=== PATIENT | female | born 1955 | race Caucasian/White ===

== ENCOUNTER → 2019-08-14 | Outpatient (CLI) | payer MEDICAID ==
--- NOTE | 2019-08-14 11:20 | RAD ---
SHOULDER 2+V RIGHT DATE: 08/14/2019 12:00 AM INDICATION: Reason: RIGHT SHOULDER PAIN / Spl. Instructions: / History: COMPARISON: None. FINDINGS: Bones: There is no evidence of acute fracture or dislocation. Joints: Mild degenerative changes of the acromioclavicular joint. Glenohumeral joint is congruent. The acromiohumeral distance is not narrowed. Miscellaneous: No abnormal soft tissue calcifications in the shoulder. IMPRESSION: No acute osseous abnormality. Mild degenerative changes. Electronically signed by: Tate Allen MD (08/14/2019 11:17 AM) [id number]
== END ==
LOC: DXRAD 09:30
PROVIDERS: ATTEND Physician Assistant
DX: M19.011 Primary osteoarthritis, right shoulder (principal)
CPT/HCPCS: 73030

== ENCOUNTER 2019-11-02 12:06 | Emergency (ER) | payer OTHER, MEDICAID ==
[~2019-11-02] VITALS: Ht 167.6 cm; Wt 113.6 kg
[2019-11-02 12:47] LABS: BILIRUBIN,URINE NEG (NEG); CLARITY,URINE CLEAR; COLOR,URINE STRAW; GLUCOSE,URINE NEG (NEG); NITRITE,URINE NEG (NEG); RBC,URINE RARE /HPF (0-2); UROBILINOGEN,URINE 0.2 mg/dL (0.2 mg/dL)
[2019-11-02 12:52] LABS: BACTERIA,URINE FEW /HPF (0-FEW)
[2019-11-02 12:53] LABS: SQUAMOUS EPITHELIAL CELL,UR FEW /LPF
[2019-11-02 13:05] LABS: BASO % 0 % (0-3); EOS # 0.2 x10^3/uL (0.0-0.7); EOS % 2 % (0-3); HEMATOCRIT 40.3 % (36.0-47.0); HEMOGLOBIN 13.3 g/dL (12.0-15.5); LYMPH # 1.5 x10^3/uL (1.0-4.8); LYMPH % 22 % (24-48); MEAN CORPUSCULAR HEMOGLOBIN 29 pg (25-35); MEAN CORPUSCULAR HGB CONC 33 g/dL (31-37); MEAN CORPUSCULAR VOLUME 88 fL (79-100); MONO # 0.4 x10^3/uL (0.0-1.1); MONO % 6 % (0-9); NEUT # 4.6 x10^3uL (1.8-7.7); NEUT % 69 % (31-73); PLATELET COUNT 192 x10^3/uL (140-400); RED BLOOD COUNT 4.57 x10^6/uL (3.50-5.40); RED CELL DISTRIBUTION WIDTH 14.8 % (11.5-14.5); WHITE BLOOD COUNT 6.7 x10^3/uL (4.0-11.0)
[2019-11-02 13:12] LABS: CALCIUM 9.1 mg/dL (8.5-10.1); CREATININE 0.8 mg/dL (0.6-1.0); POTASSIUM 3.6 mmol/L (3.5-5.1)
[2019-11-02 13:20] LABS: ALBUMIN 3.5 g/dL (3.4-5.0); TOTAL BILIRUBIN 0.2 mg/dL (0.2-1.0)
--- NOTE | 2019-11-02 13:59 | RAD ---
PQRS Compliance Statement: One or more of the following individualized dose reduction techniques were utilized for this examination: 1. Automated exposure control 2. Adjustment of the mA and/or kV according to patient size 3. Use of iterative reconstruction technique CT abdomen/pelvis without contrast 11/02/2019 12:32 PM INDICATION: Lower abdominal pain COMPARISON: None available TECHNIQUE: Multiple axial CT images of the abdomen and pelvis were obtained without intravenous contrast. Coronal and sagittal reformats are provided. FINDINGS: There is subsegmental atelectasis in the left lower lobe. Heart size within normal limits. Evaluation of solid abdominal viscera is limited by lack of intravenous contrast. Subcentimeter hypodensities are identified scattered throughout the liver measuring up to 5 mm) series 2, image 47) which are too small to characterize. These findings are statistically favored to represent benign etiology in the absence of underlying malignancy. Right adrenal nodule measures 2.8 x 2.0 cm with attenuation of 1.5 Hounsfield units suggestive of a lipid rich adrenal adenoma. There is a left adrenal nodule measuring 1.6 x 1.5 cm suggestive of a lipid rich adrenal adenoma. Spleen, pancreas and gallbladder are normal in appearance. Abdominal aorta is normal in course and caliber. There are no pathologically enlarged lymph nodes in abdomen and pelvis. There is no free fluid or free intraperitoneal air. There is moderate colonic diverticulosis. Appendix is normal in appearance. Postoperative changes from gastric bypass surgery are noted. Shunt catheter is identified terminating in the right upper quadrant abdomen. Coarse calcification identified within the right upper quadrant of the abdomen. Bowel anastomosis noted left upper quadrant. Tiny pocket of fluid is identified deep to the ventral abdominal wall the lower pelvis measuring 1.4 x 1.3 cm, nonspecific. The kidneys are relatively symmetric in appearance. There is no suspicious renal mass within the limitations of a noncontrast examination. There is no hydronephrosis. There are no calculi within the kidneys, ureters or urinary bladder. Urinary bladder is within normal limits in degree of distention. No suspicious pelvic mass. No suspicious osseous abnormality. IMPRESSION: 1. Moderate colonic diverticulosis. No adjacent inflammatory changes to suggest diverticulitis. 2. Bilateral lipid rich adrenal adenomas measuring up to 2.8 x 2.0 cm. 3. Shunt catheter terminates in the right upper quadrant abdomen. No significant free fluid or free intraperitoneal air. 4. Postoperative changes from gastric bypass surgery without evidence for bowel obstruction or inflammation. 5. No evidence for obstructive uropathy. 6. Subcentimeter hypodensities within the liver are statistically favored represent benign etiology such as cysts or hemangiomas in the absence of underlying malignancy. 7. Nonspecific focal fluid collection deep to the ventral abdominal wall in the upper pelvis measuring 1.4 x 1.3 cm. No adjacent inflammation. Consideration may be given for sequela of prior omental infarct. Electronically signed by: Ericka Quarles MD (11/02/2019 1:56 PM) [facility]
--- NOTE | 2019-11-02 15:47 | RAD ---
ABDOMEN LTD: 11/02/2019 12:32 PM Indication: 64 years old Female. Right upper quadrant abdominal pain. Comparison: None. TECHNIQUE: Sonographic evaluation of the right upper quadrant was performed utilizing grayscale and color Doppler imaging. FINDINGS: Liver: There is diffuse increased echogenicity of the hepatic parenchyma compatible with diffuse hepatocellular disease, most commonly due to steatosis. This decreases the sensitivity of ultrasound for the detection of focal hepatic lesions.. There is hepatopedal flow within the portal venous system. Right hepatic lobe measures 17.2 cm. Biliary system: CBD measures 2 mm. There is no intrahepatic or extrahepatic biliary dilatation. Gallbladder: Distended measuring 11.5 cm in length. No gallstones or gallbladder wall thickening . Sonographic Nation sign: Negative Pancreas: Visualized head and uncinate process are unremarkable. Body and tail are not visualized. Right kidney: 10.8 x 5.5 x 4.8 cm No hydronephrosis. Normal echotexture without focal mass or renal calculus. The right suprarenal hypoechoic structures identified which likely corresponds with CT finding of adrenal lipid rich adenoma. Free fluid:None. IMPRESSION: 1. No cholelithiasis or sonographic evidence for acute cholecystitis. 2. Right adrenal mass with CT findings suggestive of a lipid rich adrenal adenoma. 3. Increased echogenicity of the hepatic parenchyma suggestive of hepatocellular disease, most commonly hepatic steatosis. Electronically signed by: Ericka Quarles MD (11/02/2019 3:44 PM) [facility]
--- NOTE | 2019-11-02 16:03 | PHYS DOC ---
Past History Past Medical History: Diabetes, GERD, Hypertension, Other Additional Past Medical Histor: chronic pain knees Past Surgical History: No Surgical History, , Gastric Bypass Alcohol Use: None General Adult EDM: Chief Complaint: ABDOMINAL PAIN HPI: HPI: 64-year-old female has medical history of [employer] shunt, diabetes, hypertension, hypothyroidism, hyperlipidemia and COPD, presents the ED with complaints of right upper quadrant abdominal pain that radiates to her suprapubic region that started last . Patient states at that time she saw her primary care physician Dr. Asher who started her on a laxative, MiraLAX and Dulcolax. Patient states this made her stools runny and her last bowel movement was that day (3 d ago). History 4 C-sections with lysis of adhesions. Patient states supra pubic abdominal pain hurts when she walks. States she got a paper from primary care physician to have an ultrasound of her gallbladder and kidneys but was told she was likely constipated. Review of Systems: Review of Systems: Constitutional: Denies fever or chills Eyes: Denies change in visual acuity HENT: Denies nasal congestion or sore throat Respiratory: Denies cough or shortness of breath, hemoptysis Cardiovascular: Denies chest pain or edema GI: Denies abdominal pain, nausea, vomiting, bloody stools or diarrhea, melena, hematochezia : Denies dysuria, hematuria Musculoskeletal: Denies back pain or joint pain, leg swelling Integument: Denies rash Neurologic: Denies headache, focal weakness or sensory changes Endocrine: Denies polyuria or polydipsia Lymphatic: Denies swollen glands Psychiatric: Denies depression or anxiety Heart Score: Risk Factors: Risk Factors: DM, Current or recent (<one month) smoker, HTN, HLP, family history of CAD, obesity. Risk Scores: Score 0 - 3: 2.5% MACE over next 6 weeks - Discharge Home Score 4 - 6: 20.3% MACE over next 6 weeks - Admit for Clinical Observation Score 7 - 10: 72.7% MACE over next 6 weeks - Early Invasive Strategies Physical Exam: PE: Constitutional: Well developed, well nourished, no acute distress, non-toxic appearance. [] HENT: Normocephalic, atraumatic, bilateral external ears normal, oropharynx moist, no oral exudates, nose normal. [] Eyes: PERRLA, EOMI, conjunctiva normal, no discharge. [] Neck: Normal range of motion, no tenderness, supple, no stridor. [] Cardiovascular:Heart rate regular rhythm, no murmur [] Lungs & Thorax: Bilateral breath sounds clear to auscultation [] Abdomen: Bowel sounds normal, soft, no tenderness, no masses, no pulsatile masses. [] Skin: Warm, dry, no erythema, no rash. [] Back: No tenderness, no CVA tenderness. [] Extremities: No tenderness, no cyanosis, no clubbing, ROM intact, no edema. [] Neurologic: Alert and oriented X 3, normal motor function, normal sensory function, no focal deficits noted. [] Psychologic: Affect normal, judgement normal, mood normal. [] Current Patient Data: Labs: Laboratory Tests Test 11/02/19 12:25 11/02/19 12:48 Urine Collection Type Unknown Urine Color Straw Urine Clarity Clear Urine pH 5.0 Urine Specific [place] 1.010 Urine Protein Neg (NEG-TRACE) Urine Glucose (UA) Neg mg/dL (NEG) Urine Ketones (Stick) Neg mg/dL (NEG) Urine Blood Neg (NEG) Urine Nitrite Neg (NEG) Urine Bilirubin Neg (NEG) Urine Urobilinogen Dipstick 0.2 mg/dL (0.2 mg/dL) Urine Leukocyte Esterase Neg (NEG) Urine RBC Rare /HPF (0-2) Urine WBC 1-4 /HPF (0-4) Urine Squamous Epithelial Cells Few /LPF Urine Bacteria Few /HPF (0-FEW) Urine Mucus Slight /LPF White Blood Count 6.7 x10^3/uL (4.0-11.0) Red Blood Count 4.57 x10^6/uL (3.50-5.40) Hemoglobin 13.3 g/dL (12.0-15.5) Hematocrit 40.3 % (36.0-47.0) Mean Corpuscular Volume 88 fL (79-100) Mean Corpuscular Hemoglobin 29 pg (25-35) Mean Corpuscular Hemoglobin Concent 33 g/dL (31-37) Red Cell Distribution Width 14.8 % (11.5-14.5) H Platelet Count 192 x10^3/uL (140-400) Neutrophils (%) (Auto) 69 % (31-73) Lymphocytes (%) (Auto) 22 % (24-48) L Monocytes (%) (Auto) 6 % (0-9) Eosinophils (%) (Auto) 2 % (0-3) Basophils (%) (Auto) 0 % (0-3) Neutrophils # (Auto) 4.6 x10^3uL (1.8-7.7) Lymphocytes # (Auto) 1.5 x10^3/uL (1.0-4.8) Monocytes # (Auto) 0.4 x10^3/uL (0.0-1.1) Eosinophils # (Auto) 0.2 x10^3/uL (0.0-0.7) Basophils # (Auto) 0.0 x10^3/uL (0.0-0.2) Sodium Level 136 mmol/L (136-145) Potassium Level 3.6 mmol/L (3.5-5.1) Chloride Level 100 mmol/L (98-107) Carbon Dioxide Level 29 mmol/L (21-32) Anion Gap 7 (6-14) Blood Urea Nitrogen 25 mg/dL (7-20) H Creatinine 0.8 mg/dL (0.6-1.0) Estimated GFR (Cockcroft-Gault) 72.0 BUN/Creatinine Ratio 31 (6-20) H Glucose Level 119 mg/dL (70-99) H Calcium Level 9.1 mg/dL (8.5-10.1) Total Bilirubin 0.2 mg/dL (0.2-1.0) Aspartate Amino Transferase (AST) 12 U/L (15-37) L Alanine Aminotransferase (ALT) 24 U/L (14-59) Alkaline Phosphatase 62 U/L (46-116) Total Protein 7.0 g/dL (6.4-8.2) Albumin 3.5 g/dL (3.4-5.0) Albumin/Globulin Ratio 1.0 (1.0-1.7) Vital Signs: Vital Signs Date Time Temp Pulse Resp B/P (MAP) Pulse Ox O2 Delivery O2 Flow Rate FiO2 11/02/19 15:12 89 16 132/67 (88) 98 Room Air 11/02/19 12:19 98.5 EKG: EKG: [] Radiology/Procedures: Radiology/Procedures: [] IMAGING REPORT Signed PATIENT: BLOSSOM ROSARIO ACCOUNT: [id number] : 1955 LOCATION: ER AGE: 64 SEX: F EXAM STATUS: REG ER ORD. PHYSICIAN: DISHA PAUL DO REASON: lower and pain PROCEDURE: CT ABDOMEN PELVIS WO CONTRAST PQRS Compliance Statement: One or more of the following individualized dose reduction techniques were utilized for this examination: 1. Automated exposure control 2. Adjustment of the mA and/or kV according to patient size 3. Use of iterative reconstruction technique CT abdomen/pelvis without contrast 11/02/2019 12:32 PM INDICATION: Lower abdominal pain COMPARISON: None available TECHNIQUE: Multiple axial CT images of the abdomen and pelvis were obtained without intravenous contrast. Coronal and sagittal reformats are provided. FINDINGS: There is subsegmental atelectasis in the left lower lobe. Heart size within normal limits. Evaluation of solid abdominal viscera is limited by lack of intravenous contrast. Subcentimeter hypodensities are identified scattered throughout the liver measuring up to 5 mm) series 2, image 47) which are too small to characterize. These findings are statistically favored to represent benign etiology in the absence of underlying malignancy. Right adrenal nodule measures 2.8 x 2.0 cm with attenuation of 1.5 Hounsfield units suggestive of a lipid rich adrenal adenoma. There is a left adrenal nodule measuring 1.6 x 1.5 cm suggestive of a lipid rich adrenal adenoma. Spleen, pancreas and gallbladder are normal in appearance. Abdominal aorta is normal in course and caliber. There are no pathologically enlarged lymph nodes in abdomen and pelvis. There is no free fluid or free intraperitoneal air. There is moderate colonic diverticulosis. Appendix is normal in appearance. Postoperative changes from gastric bypass surgery are noted. Shunt catheter is identified terminating in the right upper quadrant abdomen. Coarse calcification identified within the right upper quadrant of the abdomen. Bowel anastomosis noted left upper quadrant. Tiny pocket of fluid is identified deep to the ventral abdominal wall the lower pelvis measuring 1.4 x 1.3 cm, nonspecific. The kidneys are relatively symmetric in appearance. There is no suspicious renal mass within the limitations of a noncontrast examination. There is no hydronephrosis. There are no calculi within the kidneys, ureters or urinary bladder. Urinary bladder is within normal limits in degree of distention. No suspicious pelvic mass. No suspicious osseous abnormality. IMPRESSION: 1. Moderate colonic diverticulosis. No adjacent inflammatory changes to suggest diverticulitis. 2. Bilateral lipid rich adrenal adenomas measuring up to 2.8 x 2.0 cm. 3. Shunt catheter terminates in the right upper quadrant abdomen. No significant free fluid or free intraperitoneal air. 4. Postoperative changes from gastric bypass surgery without evidence for bowel obstruction or inflammation. 5. No evidence for obstructive uropathy. 6. Subcentimeter hypodensities within the liver are statistically favored represent benign etiology such as cysts or hemangiomas in the absence of underlying malignancy. 7. Nonspecific focal fluid collection deep to the ventral abdominal wall in the upper pelvis measuring 1.4 x 1.3 cm. No adjacent inflammation. Consideration may be given for sequela of prior omental infarct. Electronically signed by: Enrique Morris MD (11/02/2019 1:56 PM) [facility] DICTATED AND SIGNED BY: ENRIQUE MORRIS MD DATE: 11/02/19 135 CC: NICOLAS FU MD; DISHA PAUL DO ~ IMAGING REPORT Signed PATIENT: BLOSSOM ROSARIO ACCOUNT: [id number] : 1955 LOCATION: ER AGE: 64 SEX: F EXAM STATUS: REG ER ORD. PHYSICIAN: DISHA PAUL DO REASON: ruq pain PROCEDURE: ABDOMEN LTD ABDOMEN LTD: 11/02/2019 12:32 PM Indication: 64 years old Female. Right upper quadrant abdominal pain. Comparison: None. TECHNIQUE: Sonographic evaluation of the right upper quadrant was performed utilizing grayscale and color Doppler imaging. FINDINGS: Liver: There is diffuse increased echogenicity of the hepatic parenchyma compatible with diffuse hepatocellular disease, most commonly due to steatosis. This decreases the sensitivity of ultrasound for the detection of focal hepatic lesions.. There is hepatopedal flow within the portal venous system. Right hepatic lobe measures 17.2 cm. Biliary system: CBD measures 2 mm. There is no intrahepatic or extrahepatic biliary dilatation. Gallbladder: Distended measuring 11.5 cm in length. No gallstones or gallbladder wall thickening . Sonographic Nation sign: Negative Pancreas: Visualized head and uncinate process are unremarkable. Body and tail are not visualized. Right kidney: 10.8 x 5.5 x 4.8 cm No hydronephrosis. Normal echotexture without focal mass or renal calculus. The right suprarenal hypoechoic structures identified which likely corresponds with CT finding of adrenal lipid rich adenoma. Free fluid:None. IMPRESSION: 1. No cholelithiasis or sonographic evidence for acute cholecystitis. 2. Right adrenal mass with CT findings suggestive of a lipid rich adrenal adenoma. 3. Increased echogenicity of the hepatic parenchyma suggestive of hepatocellular disease, most commonly hepatic steatosis. Electronically signed by: Enrique Morris MD (11/02/2019 3:44 PM) [facility] DICTATED AND SIGNED BY: ENRIQUE MORRIS MD DATE: 11/02/19 1544 CC: NICOLAS FU MD; [facility] DO ~ Course & Med Decision Making: Course & Med Decision Making Pertinent Labs and Imaging studies reviewed. (See chart for details) Concern for right upper quadrant abdominal pain and irregular bowel movements, in a well-appearing, nontoxic patient, hemodynamically stable.. CT imaging concerning for fatty liver, possible omental infarct and diverticulosis with no evidence of diverticulitis. Right upper quadrant ultrasound shows no evidence of cholecystitis or cholelithiasis. U/a contaminated with no LE/nitrites. Labs wnl, no leukocytosis. Patient states she had a colonoscopy within the past year. Differential is broad-could be musculoskeletal versus neuropathic versus pelvic floor dysfunction (obese-large abdominal girth) vs IBS. Strict ED return precautions given for severe abdominal or back pain, fever or dehydration. Encouraged urgent outpatient follow-up with PMD and GI. Life-threatening processes were considered but are low suspicion at this time, given history and physical exam. Pt was educated on all prescription medications and adverse effects. All patient's questions were answered and pt was stable at time of discharge. Differential includes aortic dissection, aortic aneurysm, acute coronary syndrome, surgical abdomen (appendicitis, cholecystitis, ischemic bowel, strangulated hernia, etc), bowel obstruction or volvulus, bladder outlet obstruction, gastrointestinal bleeding, inflammatory bowel disease, peptic ulcer disease, sepsis, diverticular disease, ureterolithiasis, nephrolithiasis, ovarian or testicular torsion, ectopic , vaginal hemorrhage of infection I spoken with the patient and her caregivers. I explained the patient's condition, diagnoses and treatment plan based on the information available to me at this time. I have answered the patient and her caregiver's questions and addressed any concerns. The patient and her caregivers have a good understanding of patient's diagnosis, condition and treatment plan as can be expected at this point. Vital signs have been stable. Patient's condition is stable and appropriate for discharge from the emergency department. Patient will pursue further outpatient evaluation with primary care physician or other designated or consulting physician as outlined in the discharge instructions. The patient and/or caregivers are agreeable to this plan of care and follow-up instructions have been explained in detail. The patient and/or caregivers have received these instructions in written form and have expressed an understanding of the discharge instructions. The patient and/or caregivers are aware that any significant change of condition or worsening of symptoms should prompt immediate return to this or the closest emergency department or call to 911. Jeovany Disclaimer: Dragon Disclaimer: This electronic medical record was generated, in whole or in part, using a voice recognition dictation system. Departure Departure: Impression: Primary Impression: Abdominal pain Additional Impressions: Fatty liver Diverticulosis Disposition: 01 HOME/RESIDENCE PRIOR TO ADM Condition: STABLE Referrals: NICOLAS FU MD (PCP) Patient Instructions: Abdominal Pain, Diverticulosis Additional Instructions: toni Burt MD Primary Specialties [facility]astro[facility] Address: [address] [place] [address], [address] [place] [address] Justification of Admission: Justification of Admission: Justification of Admission Dx: N/A DISHA PAUL DO Nov 02, 2019 16:03
[2019-11-02 16:55] VITALS: BP 142/78
== END 2019-11-02 17:18 | disposition home or self-care (01) ==
LOC: ER 12:06
DX: K57.30 Diverticulosis of large intestine without perforation or abscess without bleeding (principal); K76.0 Fatty (change of) liver, not elsewhere classified; E11.9 Type 2 diabetes mellitus without complications; K21.9 Gastro-esophageal reflux disease without esophagitis; I10 Essential (primary) hypertension; G89.29 Other chronic pain; E03.9 Hypothyroidism, unspecified; E78.5 Hyperlipidemia, unspecified; J44.9 Chronic obstructive pulmonary disease, unspecified; Z98.890 Other specified postprocedural states; Z98.84 Bariatric surgery status
CPT/HCPCS: 36415; 74176; 76705; 80053; 81001; 85025; 99285-25

== ENCOUNTER 2019-12-20 14:36 | Emergency (ER) | payer OTHER, MEDICAID ==
[~2019-12-20] VITALS: Ht 167.6 cm; Wt 113.6 kg
[2019-12-20 14:52] VITALS: BP 110/61
--- NOTE | 2019-12-20 14:52 | PHYS DOC ---
Past History Past Medical History: Diabetes, GERD, Hypertension, Other Additional Past Medical Histor: chronic pain knees Past Surgical History: No Surgical History, , Gastric Bypass Alcohol Use: None Adult General Chief Complaint Chief Complaint: SEIZURE HPI HPI Patient is a 64-year-old female who presents for fatigue. Patient has extensive list of comorbidities but is well managed by primary care physician and ancillary specialists in outpatient setting. She denies any recent fever, COVID-19 contact or recent febrile illness and admits to taking all scheduled medications without any compliance issues. She reports having a seizure "all day yesterday"despite taking all of her medications as scheduled without any obvious precipitating factors. As a result, patient reports feeling fatigued today and seeking evaluation. She has no major complaints besides fatigue. Review of Systems Review of Systems Fourteen body systems of review of systems have been reviewed. See HPI for pertinent positives and negative responses, other castrejon all other systems are negative, non-pertinent or non-contributory Allergies Allergies Allergies Coded Allergies Type Severity Reaction Last Updated Verified No Known Drug Allergies 11/02/19 No Physical Exam Physical Exam Constitutional: Well developed, well nourished, no acute distress, non-toxic ap pearance. HENT: Normocephalic, atraumatic, bilateral external ears normal, oropharynx moist, no oral exudates, nose normal. Eyes: PERRLA, EOMI, conjunctiva normal, no discharge. Neck: Normal range of motion, no tenderness, supple, no stridor. Cardiovascular: Heart rate regular, sinus rhythm, no murmurs rubs or gallops Lungs & Thorax: Bilateral breath sounds clear to auscultation Abdomen: Bowel sounds normal, soft, protuberant abdomen, no tenderness, no masses, no pulsatile masses. Nonsurgical abdomen, no peritoneal signs Skin: Warm, dry, no erythema, no rash. Back: No tenderness, no CVA tenderness. Extremities: No tenderness, no cyanosis, no clubbing, ROM intact, trace edema bilaterally Neurologic: Alert and oriented X 3, grossly normal motor & sensory function, no focal deficits noted. Psychologic: Affect normal, judgement normal, anxious mood Current Patient Data Vital Signs Vital Signs Date Time Temp Pulse Resp B/P (MAP) Pulse Ox O2 Delivery O2 Flow Rate FiO2 12/20/19 14:52 84 18 110/61 (77) 98 Lab Results Laboratory Tests Test 12/20/19 14:53 White Blood Count 9.8 x10^3/uL (4.0-11.0) Red Blood Count 4.73 x10^6/uL (3.50-5.40) Hemoglobin 13.5 g/dL (12.0-15.5) Hematocrit 41.0 % (36.0-47.0) Mean Corpuscular Volume 87 fL (79-100) Mean Corpuscular Hemoglobin 29 pg (25-35) Mean Corpuscular Hemoglobin Concent 33 g/dL (31-37) Red Cell Distribution Width 14.3 % (11.5-14.5) Platelet Count 228 x10^3/uL (140-400) Neutrophils (%) (Auto) 81 % (31-73) Lymphocytes (%) (Auto) 12 % (24-48) Monocytes (%) (Auto) 6 % (0-9) Eosinophils (%) (Auto) 0 % (0-3) Basophils (%) (Auto) 0 % (0-3) Neutrophils # (Auto) 7.9 x10^3uL (1.8-7.7) Lymphocytes # (Auto) 1.2 x10^3/uL (1.0-4.8) Monocytes # (Auto) 0.6 x10^3/uL (0.0-1.1) Eosinophils # (Auto) 0.0 x10^3/uL (0.0-0.7) Basophils # (Auto) 0.0 x10^3/uL (0.0-0.2) Urine Collection Type Unknown Urine Color Straw Urine Clarity Clear Urine pH 5.0 Urine Specific [place] 1.015 Urine Protein Neg (NEG-TRACE) Urine Glucose (UA) Neg mg/dL (NEG) Urine Ketones (Stick) Neg mg/dL (NEG) Urine Blood Neg (NEG) Urine Nitrite Neg (NEG) Urine Bilirubin Neg (NEG) Urine Urobilinogen Dipstick 0.2 mg/dL (0.2 mg/dL) Urine Leukocyte Esterase Trace (NEG) Urine RBC 0 /HPF (0-2) Urine WBC Occ /HPF (0-4) Urine Squamous Epithelial Cells Few /LPF Urine Bacteria 0 /HPF (0-FEW) Sodium Level 132 mmol/L (136-145) Potassium Level 3.0 mmol/L (3.5-5.1) Chloride Level 90 mmol/L (98-107) Carbon Dioxide Level 36 mmol/L (21-32) Anion Gap 6 (6-14) Blood Urea Nitrogen 62 mg/dL (7-20) Creatinine 1.3 mg/dL (0.6-1.0) Estimated GFR (Cockcroft-Gault) 41.1 Glucose Level 118 mg/dL (70-99) Calcium Level 9.5 mg/dL (8.5-10.1) Troponin I Quantitative < 0.017 ng/mL (0-0.055) EKG EKG EKG ordered and interpreted by myself 1451 hrs. as sinus rhythm at 84 bpm, unremarkable intervals, no axis deviation, no ischemic findings, no STEMI Radiology/Procedures Radiology/Procedures PROCEDURE: CHEST AP ONLY Single view chest dated 12/20/2019. No comparison available. CLINICAL INDICATION: Seizure. Findings compare single upright portable exam performed. Heart and mediastinal contours within normal limits. STATEMENT REQUEST CLERK shunt tubing in place. Lungs are clear. No consolidation or pleural effusion. No pneumothorax. IMPRESSION: No acute radiographic abnormality. Electronically signed by: Thai Mack MD (12/20/2019 3:59 PM) [id number] Heart Score HEART Score for Chest Pain: HEART Score for Chest Pain Response (Comments) Value History Slighlty/Non-Suspicious 0 ECG Normal 0 Age >45 - < 65 1 Risk Factors >3 Risk Factors or Hx CAD 2 Troponin < Normal Limit 0 Total 3 Risk Factors: Risk Factors: DM, Current or recent (<one month) smoker, HTN, HLP, family history of CAD, obesity. Risk Scores: Risk Factors: DM, Current or recent (<one month) smoker, HTN, HLP, family history of CAD, obesity. Course & Med Decision Making Course & Med Decision Making Pertinent Labs and Imaging studies reviewed. (See chart for details) I discussed most likely diagnosis of dehydration and mild electrolyte abnormalities with patient. I have no other emergent and/or concerning diagnoses or explanations for patient's fatigue. I cannot describe patient's reported seizure that lasted "all day" with her having full recollection IV fluid rehydration and electrolyte replacement administered Patient has good access to care in outpatient setting, I feel she is safe for discharge home with close PCP follow-up within the week. She has echocardiograms and other testing modalities scheduled in the next couple weeks which she will benefit from. I did disclose this might be an acute presentation more concerning diagnoses and as such, if any concerning signs or symptoms represent prior to outpatient follow-up for her to come back for repeat examination Strict return precautions were discussed with good understanding, all questions and concerns addressed prior to ER departure in stable condition Jeovany Disclaimer Jeovany Disclaimer This electronic medical record was generated, in whole or in part, using a voice recognition dictation system. Departure Departure: Impression: Primary Impression: Dehydration Additional Impression: Electrolyte disturbance Disposition: 01 DC HOME SELF CARE/HOMELESS Condition: STABLE Referrals: NICOLAS FU MD (PCP) Patient Instructions: Hypokalemia, Sodium and Fluid Restriction Additional Instructions: As discussed prior to ER departure, please call your primary care physician first thing Sunday morning to schedule outpatient follow-up in upcoming 2 to 10 days Please continue to keep all outpatient procedures that are scheduled and appointments I would recommend repeat laboratory analysis in outpatient setting to recheck yo ur kidney function and electrolyte levels. You might need to discuss need for increased potassium requirements given increased diuretic use If any concerning signs or symptoms represent prior to outpatient follow-up please do not hesitate to return for repeat evaluation It was a pleasure to take care of you and I wish you a speedy recovery Problem Qualifiers NICOLE CORREA DO Dec 20, 2019 14:52
[2019-12-20 15:38] LABS: BASO % 0 % (0-3); EOS % 0 % (0-3); HEMOGLOBIN 13.5 g/dL (12.0-15.5); LYMPH # 1.2 x10^3/uL (1.0-4.8); LYMPH % 12 % (24-48); MEAN CORPUSCULAR HEMOGLOBIN 29 pg (25-35); MEAN CORPUSCULAR HGB CONC 33 g/dL (31-37); MEAN CORPUSCULAR VOLUME 87 fL (79-100); MONO # 0.6 x10^3/uL (0.0-1.1); MONO % 6 % (0-9); NEUT # 7.9 x10^3uL (1.8-7.7); NEUT % 81 % (31-73); PLATELET COUNT 228 x10^3/uL (140-400); RED BLOOD COUNT 4.73 x10^6/uL (3.50-5.40); RED CELL DISTRIBUTION WIDTH 14.3 % (11.5-14.5); WHITE BLOOD COUNT 9.8 x10^3/uL (4.0-11.0)
[2019-12-20 15:43] LABS: CALCIUM 9.5 mg/dL (8.5-10.1); CREATININE 1.3 mg/dL (0.6-1.0); GFR 41.1
[2019-12-20 15:46] LABS: COLOR,URINE STRAW
[2019-12-20 15:47] LABS: BACTERIA,URINE 0 /HPF (0-FEW); BILIRUBIN,URINE NEG (NEG); CLARITY,URINE CLEAR; GLUCOSE,URINE NEG (NEG); NITRITE,URINE NEG (NEG); RBC,URINE 0 /HPF (0-2); UROBILINOGEN,URINE 0.2 mg/dL (0.2 mg/dL); WBC,URINE OCC /HPF (0-4)
[2019-12-20 15:48] LABS: SQUAMOUS EPITHELIAL CELL,UR FEW /LPF
--- NOTE | 2019-12-20 16:02 | RAD ---
Single view chest dated 12/20/2019. No comparison available. CLINICAL INDICATION: Seizure. Findings compare single upright portable exam performed. Heart and mediastinal contours within normal limits. APPLIANCES SAMPLE MAKER shunt tubing in place. Lungs are clear. No consolidation or pleural effusion. No pneumothorax. IMPRESSION: No acute radiographic abnormality. Electronically signed by: Thai Mack MD (12/20/2019 3:59 PM) [id number]
[2019-12-20] MEDS ORDERED: POTASSIUM CHLORIDE 20 MEQ TABLET.ER. PO ONE (16:30)
[2019-12-20] MEDS ORDERED: POTASSIUM CL 20MEQ IN 0.9%NACL 1,000 ML IV ONE (16:30)
[2019-12-20] MEDS ORDERED: IV NORMAL SALINE 500ML 500 ML IV ONE (16:45)
--- NOTE | 2019-12-20 18:20 | EKG ---
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
== END 2019-12-20 17:51 | disposition home or self-care (01) ==
LOC: ER 14:36
DX: E86.0 Dehydration (principal); E87.8 Other disorders of electrolyte and fluid balance, not elsewhere classified; E11.9 Type 2 diabetes mellitus without complications; K21.9 Gastro-esophageal reflux disease without esophagitis; I10 Essential (primary) hypertension; G89.29 Other chronic pain; Z98.84 Bariatric surgery status; Z98.890 Other specified postprocedural states
CPT/HCPCS: 36415; 71045; 80048; 81001; 84484; 85025; 87086; 93005; 96360; 99285; J7040

== ENCOUNTER → 2019-12-23 | Outpatient (CLI) | payer OTHER, MEDICAID ==
[2019-12-20 14:52] VITALS: BP 110/61
== END ==
LOC: LAB 11:41
PROVIDERS: ATTEND Nurse Practitioner
DX: Z01.810 Encounter for preprocedural cardiovascular examination (principal); Z20.828 Contact with and (suspected) exposure to other viral communicable diseases
CPT/HCPCS: U0003

== ENCOUNTER 2020-01-01 17:47 | Emergency (ER) | payer OTHER, MEDICAID ==
[~2020-01-01] VITALS: Ht 167.6 cm; Wt 113.6 kg
--- NOTE | 2020-01-01 18:16 | PHYS DOC ---
Past History Past Medical History: CHF, Diabetes, GERD, Hypertension, Seizure, Other Additional Past Medical Histor: chronic pain knees (LORENA WHITLOCK APRN) Past Surgical History: , Gastric Bypass, Hysterectomy, Other Additional Past Surgical Histo: CUTTING PRESSMAN SHUNT IN HEAD; RIGHT ROTATOR CUFF REPAIR (LORENA WHITLOCK APRN) Alcohol Use: None (LORENA WHITLOCK APRN) Adult General Chief Complaint Chief Complaint: WRIST PAIN [facility] HPI Patient is a 64-year-old female patient who presents with right wrist pain. Patient reports that she was walking outside today, when she tripped on some bricks and fell, landing on her right knee and right hand. States she has had some increasing pain throughout the day, with some increased swelling. Reports her hand is normally swollen from arthritis, however it is to be little bit worse today. States no decrease in range of motion however she is having some pain with range of motion. Denies any discomfort to her knee. Denies any dizziness, chest discomfort prior to falling or after falling. States she has taken regularly prescribed medications for this. (LORENA WHITLOCK APRN) Review of Systems Review of Systems Constitutional: Denies fever or chills [] Eyes: Denies change in visual acuity, redness, or eye pain [] Respiratory: Denies cough or shortness of breath [] Cardiovascular: No additional information not addressed in HPI [] GI: Denies abdominal pain, nausea, vomiting, bloody stools or diarrhea [] : Denies dysuria or hematuria [] Musculoskeletal: Denies back pain complains of pain to right wrist, denies pain to right knee [] Integument: Denies rash or skin lesions [] Neurologic: Denies headache, focal weakness or sensory changes [] Endocrine: Denies polyuria or polydipsia [] All other systems were reviewed and found to be within normal limits, except as documented in this note. (LORENA WHITLOCK APRN) Allergies Allergies Allergies Coded Allergies Type Severity Reaction Last Updated Verified No Known Drug Allergies 11/02/19 No (LORENA WHITLOCK APRN) Physical Exam Physical Exam Constitutional: Well developed, well nourished, no acute distress, non-toxic appearance. [] Neck: Normal range of motion, no tenderness, supple, no stridor. [] Cardiovascular:Heart rate regular rhythm, no murmur [] Lungs & Thorax: Bilateral breath sounds clear to auscultation [] Abdomen: Bowel sounds normal, soft, no tenderness, no masses, no pulsatile masses. [] Skin: Warm, dry, no erythema, no rash. [] Back: No tenderness, no CVA tenderness. [] Extremities: no cyanosis, no clubbing, ROM intact, no edema. Increased bony prominence over fifth and fourth metacarpals right hand without tenderness. Tenderness located distal radius and ulna, patient nonspecific as to which. Decreased range of motion with flexion extension of right wrist. Patient able to make a fist and grasp. Patient able to fan fingers on hand [] Neurologic: Alert and oriented X 3, normal motor function, normal sensory function, no focal deficits noted. [] Psychologic: Affect normal, judgement normal, mood normal. [] (LORENA WHITLOCK APRN) Current Patient Data Vital Signs Vital Signs Date Time Temp Pulse Resp B/P (MAP) Pulse Ox O2 Delivery O2 Flow Rate FiO2 01/01/20 17:47 97.5 80 18 86/41 (56) 94 Room Air (LORENA WHITLOCK APRN) EKG EKG [] (LORENA WHITLOCK APRN) Radiology/Procedures Radiology/Procedures EXAM: WRIST 3V RIGHT, HAND RIGHT 3V 01/01/2020 6:10 PM CLINICAL INDICATION:Fall on outstretched hand, swelling and pain COMPARISON:None TECHNIQUE:3 views of the right wrist. 3 views of the right hand FINDINGS: Right wrist: No acute fracture. Alignment is normal. Joint spaces are maintained. No focal soft tissue abnormality. Right hand: No acute fracture. Alignment is normal. There are small osteophytes at the second through fourth metacarpal heads. Joint spaces are maintained. No focal soft tissue abnormality. IMPRESSION:No acute osseous abnormality of the right wrist or hand. Electronically signed by: Lisa Puckett MD (01/01/2020 7:48 PM) [id number] (LORENA WHITLOCK APRN) Heart Score Risk Factors: Risk Factors: DM, Current or recent (<one month) smoker, HTN, HLP, family history of CAD, obesity. Risk Scores: Risk Factors: DM, Current or recent (<one month) smoker, HTN, HLP, family history of CAD, obesity. (LORENA WHITLOCK APRN) Course & Med Decision Making Course & Med Decision Making Pertinent Labs and Imaging studies reviewed. (See chart for details) [] Reviewed imaging with patient without noted acute fractures, Patient to continue to take her home pain medications as needed for discomfort. Follow-up as needed for further concerns and use ice (LORENA WHITLOCK APRN) Dragon Disclaimer Dragon Disclaimer This electronic medical record was generated, in whole or in part, using a voice recognition dictation system. (LORENA WHITLOCK APRN) Departure Departure: Impression: Primary Impression: Right wrist sprain Disposition: 01 DC HOME SELF CARE/HOMELESS Condition: GOOD Referrals: NICOLAS FU MD (PCP) Patient Instructions: Wrist Sprain with [facility] Additional Instructions: As we discussed, continue to put ice on your wrists to help with the pain and swelling. Follow-up with your primary care provider as needed. Take your home pain medications. Attending Signature Attending Signature I have reviewed the PA/ALUMINUM SIDING MECHANIC's note and plan of care. I was available for consultation as needed during the patient's visit in the emergency department. I agree with the clinical impression, plan, and disposition. (SKYLER GALE DO) Problem Qualifiers Primary Impression: Right wrist sprain Encounter type: initial encounter Qualified Codes: S63.501A - Unspecified sprain of right wrist, initial encounter LORENA WHITLOCK APRN Jan 01, 2020 18:16 SKYLER GALE DO Jan 01, 2020 22:04
--- NOTE | 2020-01-01 19:50 | RAD ---
EXAM: WRIST 3V RIGHT, HAND RIGHT 3V 01/01/2020 6:10 PM CLINICAL INDICATION:Fall on outstretched hand, swelling and pain COMPARISON:None TECHNIQUE:3 views of the right wrist. 3 views of the right hand FINDINGS: Right wrist: No acute fracture. Alignment is normal. Joint spaces are maintained. No focal soft tissue abnormality. Right hand: No acute fracture. Alignment is normal. There are small osteophytes at the second through fourth metacarpal heads. Joint spaces are maintained. No focal soft tissue abnormality. IMPRESSION:No acute osseous abnormality of the right wrist or hand. Electronically signed by: Lisa Puckett MD (01/01/2020 7:48 PM) [id number]
[2020-01-01 20:15] VITALS: BP 129/66
== END 2020-01-01 20:15 | disposition home or self-care (01) ==
LOC: ER 17:47
DX: S63.591A Other specified sprain of right wrist, initial encounter (principal); M79.641 Pain in right hand; R60.0 Localized edema; I11.0 Hypertensive heart disease with heart failure; I50.9 Heart failure, unspecified; E11.9 Type 2 diabetes mellitus without complications; K21.9 Gastro-esophageal reflux disease without esophagitis; G89.29 Other chronic pain; Z90.710 Acquired absence of both cervix and uterus; Z98.890 Other specified postprocedural states; W10.8XXA Fall (on) (from) other stairs and steps, initial encounter; Y93.89 Activity, other specified; Y92.89 Other specified places as the place of occurrence of the external cause; Y99.8 Other external cause status
CPT/HCPCS: 73110; 73130; 99284

== ENCOUNTER → 2020-02-11 | Outpatient (CLI) | payer OTHER, MEDICAID ==
--- NOTE | 2020-02-13 19:34 | RAD ---
Examination: MG 2D BILAT SCREENING History: Reason: SCREENING MAMMOGRAM / Spl. Instructions: / History: Comparison/Correlation: 12/19/2017, 12/25/2016, 10/04/2015 Technique: Routine bilateral digital mammogram views were obtained. Findings: Breast Tissue Density B : There are scattered areas of fibroglandular density. Left upper-outer breast punctate calcification cluster 8.3 cm from nipple is present. These punctate calcifications are more evident compared to prior exams. No mass is identified. No distortion. IMPRESSION: Spot magnification of the left upper outer breast calcification cluster recommended. BI-RADS Category 0: Incomplete: Need additional imaging evaluation. The images were reviewed with computer aided detection. Patient information is entered into the reminder system with a target due date for the next screening mammogram. Mammography is the most sensitive method for finding small breast cancers, but it does not detect the m all and is not a substitute for careful clinical examination. A negative mammogram does not negate a clinically suspicious finding and should not result in delay in biopsying a clinically suspicious a bnormality. "Our facility is accredited by the [employer] Mammography Program." Electronically signed by: Johny Gusman MD (02/13/2020 7:32 PM) [id number]
== END ==
LOC: MAMMO 10:03
PROVIDERS: ATTEND Family Medicine
DX: Z12.31 Encounter for screening mammogram for malignant neoplasm of breast (principal)
CPT/HCPCS: 77067

== ENCOUNTER → 2020-03-01 | Outpatient (CLI) | payer OTHER, MEDICAID ==
[~2020-03-01] MED LIST: ALBU2.5V8 INH; ASPI-630 PO; ATOR40TA59 PO; CEPH500C PO; CHOL500021 PO; FLUT1BLS9 IH; HYDR-2769 PO; METO5TAB4 PO; OXYC13.5 PO; PANT40TA6 PO; POTA10TA5 PO; PRAM0.255 PO; SULF1TAB24 PO; TOPI50TA38 PO; TORS20TA2 PO
--- NOTE | 2020-03-01 16:19 | RAD ---
EXAM: Left breast diagnostic mammogram. HISTORY: 64-year-old female presents for reduction of left breast microcalcifications. TECHNIQUE: Full-field true lateral and spot magnification views of the left breast are obtained. COMPARISON: 02/11/2020 and 12/19/2017 BREAST PARENCHYMAL DENSITY: Level A - Mostly fat. FINDINGS: There are adjacent clustered microcalcifications within the 3:00 position at mid to posteri or depth which demonstrate heterogeneous morphology. These are increased compared to prior studies. T here is slight asymmetry in this location, without the convincing mass or architectural distortion. T here are additional scattered ossifications elsewhere within the left breast. IMPRESSION: Adjacent clustered microcalcifications with heterogeneous morphology within the 3:00 posi tion of the left breast at mid to posterior depth. Stereotactic guided biopsy is recommended for defi nitive diagnosis. RECOMMENDATION: BI-RADS Category 4: Suspicious abnormality. Stereotactic guided biopsy is recommended . These findings and recommendations were discussed with the patient and were communicated to the refer ring physician nursing line following the exam. If your mammogram demonstrates that you have dense breast tissue, which could hide abnormalities, and if you have other risk factors for breast cancer that have been identified, you might benefit from s upplemental screening tests that may be suggested by your ordering physician. Dense breast tissue, i n and of itself, is a relatively common condition. This information is not provided to cause undue c oncern, but rather to raise your awareness and to promote discussion with your physician regarding th e presence of other risk factors, in addition to dense breast tissue. A report of your mammography re sults will be sent to you and your physician. You should contact your physician if you have any ques tions or concerns regarding this report. Mammography is a sensitive method for finding small breast cancers, but it does not detect them all a nd is not a substitute for careful clinical examination. A negative mammogram does not negate a clin ically suspicious finding and should not result in delay in biopsying a clinically suspicious abnorma lity. PQRS compliance statement - Patient information was entered into a reminder system with a target due date for the next mammogram. "Our facility is accredited by the [employer] Mammography [employer]." Electronically signed by: Princess Norris MD (03/01/2020 4:17 PM) [id number]
== END ==
LOC: MAMMO 15:11
PROVIDERS: ATTEND Family Medicine
DX: R92.0 Mammographic microcalcification found on diagnostic imaging of breast (principal)
CPT/HCPCS: 77065

== ENCOUNTER 2020-04-16 10:57 | Emergency (ER) | payer OTHER, MEDICAID ==
[~2020-04-16] VITALS: Ht 167.6 cm; Wt 113.6 kg
[2020-04-16 11:07] VITALS: BP 163/85
--- NOTE | 2020-04-16 11:28 | PHYS DOC ---
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 Is warm to the touch. Was applying triple antibiotic ointment and is wondering if she is allergic to it. Reports she is on a diuretic 3 times a day and also takes Norvasc. States she has no history of diabetes or h/o MRSA. Denies any associated fever, chills, brachial thermia, paralysis, paresthesia or neurologic deficits of right lower extremity. Reports her swelling in both legs are equal and chronic. When asked about vascular disease she states " I think I have that." Is not on any chemo or radiation. Has surgery scheduled for her left breast on Sunday with her breast surgeon at [facility]. Also reports rash under both breasts, worse under right breast that she's been using a topical cream for - does admit improvement but asks me to look at the rash. Review of Systems: Review of Systems: Constitutional: Denies fever or chills Eyes: Denies change in visual acuity HENT: Denies nasal congestion or sore throat Respiratory: Denies cough or shortness of breath Cardiovascular: Denies chest pain or edema GI: Denies abdominal pain, nausea, vomiting, bloody stools or diarrhea : Denies dysuria or hematuria Musculoskeletal: Denies back pain or joint pain Integument: Denies diaphoresis or crepitus Neurologic: Denies headache, focal weakness or sensory changes Endocrine: Denies polyuria or polydipsia Lymphatic: Denies swollen glands Psychiatric: Denies depression or anxiety Allergies: Allergies: Allergies Coded Allergies Type Severity Reaction Last Updated Verified No Known Drug Allergies 11/02/19 No Physical Exam: PE: Constitutional: Well developed, well nourished, no acute distress, non-toxic appearance. HENT: Normocephalic, atraumatic, Eyes: EOMI, conjunctiva normal, no discharge. Neck: Normal range of motion, supple, Cardiovascular: S1/2 present, regular rhythm, very mild erythematous satellite lesions under both breasts in the skin folds < 4cm wide - no moist skin (appears to be responding to her topical antifungal cream) Lungs & Thorax: Speaking in full sentences, bilateral equal chest rise, no tachypnea or increased work of breathing Abdomen: soft, no tenderness, Skin: Warm, dry, no erythema, no rash. [] Back: No tenderness, no CVA tenderness. [] Extremities: No tenderness, no cyanosis, bilateral equal plus 3 out of 4 pitting lower extremity edema, 14 x 8 cm region of warmth/erythema over posterior right calf, cap refill less than 1 second, foot warm & LE pulses intact Neurologic: Alert and oriented X 3, normal motor function, normal sensory function, no focal deficits noted. [] Psychologic: Affect normal, judgement normal, mood normal. [] Current Patient Data: Vital Signs: Vital Signs Date Time Temp Pulse Resp B/P (MAP) Pulse Ox O2 Delivery O2 Flow Rate FiO2 04/16/20 11:07 98.2 80 16 163/85 (111) 98 Room Air EKG: EKG: [] Radiology/Procedures: Radiology/Procedures: [] Heart Score: Risk Factors: Risk Factors: DM, Current or recent (<one month) smoker, HTN, HLP, family history of CAD, obesity. Risk Scores: Score 0 - 3: 2.5% MACE over next 6 weeks - Discharge Home Score 4 - 6: 20.3% MACE over next 6 weeks - Admit for Clinical Observation Score 7 - 10: 72.7% MACE over next 6 weeks - Early Invasive Strategies Course & Med Decision Making: Course & Med Decision Making Pertinent Labs and Imaging studies reviewed. (See chart for details) Concern for right posterior calf cellulitis, will cover with community-acquired MRSA antibiotics, Bactrim and Keflex. Tetanus UTD. Will discharge home with strict ED return precautions were given for worsening rash, flulike symptoms or neurologic deficits/severe pain of left lower extremity. Encouraged urgent outpatient follow-up with PMD and wound care follow-up in 48 hours for recheck. Life-threatening processes were considered but are low suspicion at this time, given history, physical exam and ED workup. Pt was educated on all prescription medications and adverse effects. All patient's questions were answered and pt was stable at time of discharge. Life/limb-threatening differential includes but is not limited to, erythema multiforme, hickman-juan syndrome, toxic epidermal necrolysis, staphylococcal scalded skin syndrome, necrotizing fasciitis/myositis/cellulitis, purpura fulminans, heparin or warfarin induced skin necrosis, angioedema, anaphylaxis drug rash, disseminated intravascular coagulation, disseminated gonococcal disease, vasculitis, septicemia, petechial disorder or coagulopathy, viral exanthem, Kawasaki's disease or life-threatening burn requiring burn center management or escharotomy. I spoken with the patient and her caregivers. I explained the patient's condition, diagnoses and treatment plan based on the information available to me at this time. I have answered the patient and her caregiver's questions and addressed any concerns. The patient and her caregivers have a good understanding of patient's diagnosis, condition and treatment plan as can be expected at this point. Vital signs have been stable. Patient's condition is stable and appropriate for discharge from the emergency department. Patient will pursue further outpatient evaluation with primary care physician or other designated or consulting physician as outlined in the discharge instructions. The patient and/or caregivers are agreeable to this plan of care and follow-up instructions have been explained in detail. The patient and/or caregivers have received these instructions in written form and have expressed an understanding of the discharge instructions. The patient and/or caregivers are aware that any significant change of condition or worsening of symptoms should prompt immediate return to this or the closest emergency department or call to 911Ly Thayer Disclaimer: Jeovany Disclaimer: This electronic medical record was generated, in whole or in part, using a voice recognition dictation system. Departure Departure: Impression: Primary Impression: Cellulitis of right lower extremity Additional Impression: Luisa infection of flexural skin Disposition: 01 DC HOME SELF CARE/HOMELESS Condition: STABLE Referrals: NICOLAS FU MD (PCP) For wound check in 48 hours Patient Instructions: Cellulitis, Cutaneous Candidiasis Additional Instructions: EMERGENCY DEPARTMENT GENERAL DISCHARGE INSTRUCTIONS Thank you for coming to [facility] (ED) today and trusting us with you care. We trust that you had a positivie experience in our Emergency Department. If you wish to speak to the department management, you may call the director at [phone]. YOUR FOLLOW UP INSTRUCTIONS ARE FOLLOWS: 1. Do you have a private Doctor? If you do not have a private doctor, please ask for a resource list of physicians or clinics that may be able to assist you with follow up care. 2. The Emergency Physician has interpreted your x-rays. The X-Ray specialist will also review them. If there is a change in the findings, you will be notified in 48 hours when at all possible. 3. A lab test or culture has been done, your results will be reviewed and you will be notified if you need a change in treatment. ADDITIONAL INSTRUCTIONS AND INFORMATION: 1. Your care today has been supervised by a physician who is specially trained in emergency care. Many problems require more than one evaluation for a complete diagnosis and treatment. We recommend that you schedule your follow up appointment as recommended to ensure complete treatment of you illness or injury. If you are unable to obtain follow up care and continue to have a problem, or if your condition worsens, we recommend that you return to the ED. 2. We are not able to safely determine your condition over the phone nor are we able to give sound medical advice over the phone. For these safety reasons, if you call for medical advice we will ask you to come to the ED for further evaluation. 3. If you have any questions regarding these discharge instructions please call the ED at [phone]. SAFETY INFORMATION: In the interest of safety, wellness, and injury prevention; we encourage you to wear your sealbelt, if you smoke; quite smoking, and we encourage family to use a protective helmet for bicycling and other sporting events that present an increased risk for head injury. IF YOUR SYMPTOMS WORSEN OR NEW SYMPTOMS DEVELOP, OR YOU HAVE CONCERNS ABOUT YOUR CONDITION; OR IF YOUR CONDITION WORSENS WHILE YOU ARE WAITING FOR YOUR FOLLOW UP APPOINTMENT; EITHER CONTACT YOUR PRIMARY CARE DOCTOR, THE PHYSICIAN WHOSE NAME AND NUMBER YOU WERE GIVEN, OR RETURN TO THE ED IMMEDIATELY. Scripts Cephalexin (CEPHALEXIN) 500 Mg Capsule 2 CAP PO BID for rash for 10 Days, #40 CAP Prov: DISHA PAUL DO 04/16/20 Sulfamethoxazole/Trimethoprim (BACTRIM DS TABLET) 1 Each Tablet 1 TAB PO BID for rash for 10 Days, #20 TAB 0 Refills Prov: DISHA PAUL DO 04/16/20 DISHA PAUL DO Apr 16, 2020 11:28
[2020-04-16] MEDS ORDERED: CEPH500C PO (11:31)
[2020-04-16] MEDS ORDERED: SULF1TAB24 PO (11:31)
== END 2020-04-16 11:33 | disposition home or self-care (01) ==
LOC: ER 10:57
DX: L03.115 Cellulitis of right lower limb (principal); R21 Rash and other nonspecific skin eruption; L53.9 Erythematous condition, unspecified; K21.9 Gastro-esophageal reflux disease without esophagitis; I11.0 Hypertensive heart disease with heart failure; I50.9 Heart failure, unspecified; E11.9 Type 2 diabetes mellitus without complications; G89.29 Other chronic pain; Z85.9 Personal history of malignant neoplasm, unspecified; Z90.710 Acquired absence of both cervix and uterus; Z98.890 Other specified postprocedural states
CPT/HCPCS: 99284

== ENCOUNTER 2020-04-28 19:52 | Observation (INO) | payer OTHER, MEDICAID ==
[~2020-04-28] VITALS: Ht 160 cm; Wt 117.3 kg
[~2020-04-28 19:52] MED LIST changes: -ALBU2.5V8 INH; -ASPI-630 PO; -ATOR40TA59 PO; -CHOL500021 PO; -FLUT1BLS9 IH; -HYDR-2769 PO; -METO5TAB4 PO; -OXYC13.5 PO; -PANT40TA6 PO; -POTA10TA5 PO; -PRAM0.255 PO; -TOPI50TA38 PO; -TORS20TA2 PO
--- NOTE | 2020-04-28 19:59 | PHYS DOC ---
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 she did some blood work.. and I guess .. my potassium was low .. and they called tonight.. " Patient is a 64 year old female who presents with above hx and complaints of hyp okalemia . Pt. follow up with Cardiology clinic for CHF. Pt. has past medical hx . of cancer, diabetes, GERD, sleep apnea, hypertension, seizure disorder, arthritis, cerebral edema treated by shunt, venous stasis changes and this cellulitis. Patient normally follows with Dr. Fu. No recent travel. No specific ill contacts. Has been compliant with her meds. Recently has increase in her diuretics. Review of Systems: Review of Systems: Constitutional: Denies fever or chills Eyes: Denies change in visual acuity HENT: Denies nasal congestion or sore throat Respiratory: Denies cough or shortness of breath Cardiovascular: History of edema, CHF GI: Denies abdominal pain, nausea, vomiting, bloody stools or diarrhea : Denies dysuria Musculoskeletal: Denies back pain or joint pain Integument: Denies rash Neurologic: Denies headache, focal weakness or sensory changes. Complains of generalized weakness Endocrine: Denies polyuria or polydipsia Lymphatic: Denies swollen glands Psychiatric: Denies depression or anxiety Family History: Family History: Noncontributory to presentation Current Medications: Current Meds: See nursing for home meds Allergies: Allergies: Allergies Coded Allergies Type Severity Reaction Last Updated Verified No Known Drug Allergies 11/02/19 No Physical Exam: PE: Constitutional: no acute distress, non-toxic appearance. [] HENT: Normocephalic, atraumatic, bilateral external ears normal, oropharynx moist, no oral exudates, nose normal. [] Old shunt scar Eyes: PERRLA, EOMI, conjunctiva normal, no discharge. [] Neck: Normal range of motion, no tenderness, supple, no stridor. [] Cardiovascular:Heart rate regular rhythm, no murmur []. PMI to left Lungs & Thorax: Bilateral breath sounds basilar crackles on auscultation [] Abdomen: Bowel sounds normal, soft, no tenderness, no masses, no pulsatile masses. Morbidly obese. Multiple surgery scars . Skin: Warm, dry, no erythema, distal venous stasis rash. [] Back: No tenderness, no CVA tenderness. [] Extremities: No tenderness, no cyanosis, no clubbing, ROM intact, 2+ pitting edema to mid tibia edema. [] Neurologic: Alert and oriented X 3, moves all extremities on request has distal sensory,, no focal deficits noted. [] Psychologic: Affect anxious, judgement normal, mood normal. [] EKG: EKG: My interpretation EKG shows a sinus rhythm at 70 bpm. No acute morphology [] Radiology/Procedures: Radiology/Procedures: [][address] [address] IMAGING REPORT Signed PATIENT: BLOSSOM ROSARIO ACCOUNT: [id number] : 1955 LOCATION: ER AGE: 64 SEX: F EXAM STATUS: REG ER ORD. PHYSICIAN: CHARLOTTE ERIC MD REASON: cp PROCEDURE: PORTABLE CHEST 1V Exam: Chest one view INDICATION: Chest pain TECHNIQUE: Frontal view of the chest Comparisons: 12/20/2019 FINDINGS: Heart is mildly enlarged. Pulmonary vessels are within normal limits. The lung and pleural spaces are clear. IMPRESSION: No acute pulmonary process. Electronically signed by: Hector Hooker MD (04/28/2020 8:48 PM) [facility] DICTATED AND SIGNED BY: HECTOR HOOKER MD DATE: 04/28/202046 CC: NICOLAS FU MD; CHARLOTTE ERIC MD ~MTH0 0 Heart Score: HEART Score for Chest Pain: HEART Score for Chest Pain Response (Comments) Value History Slighlty/Non-Suspicious 0 ECG Normal 0 Age > 65 2 Risk Factors 1 or 2 Risk Factors 1 Total 3 Risk Factors: Risk Factors: DM, Current or recent (<one month) smoker, HTN, HLP, family history of CAD, obesity. Risk Scores: Score 0 - 3: 2.5% MACE over next 6 weeks - Discharge Home Score 4 - 6: 20.3% MACE over next 6 weeks - Admit for Clinical Observation Score 7 - 10: 72.7% MACE over next 6 weeks - Early Invasive Strategies Course & Med Decision Making: Course & Med Decision Making Pertinent Labs and Imaging studies reviewed. (See chart for details) Discussed presentation, testing and tx. plan with Dr. Benjamin - advised admit to service, telemetry, and replace potassium with 40 mEq p.o. 3 times a day. Give 1 Gram of magnesium IV. Impression; 1. Weakness 2. Hypokalemia critical level 1.9 3. History of CHF 4. History of diabetes glucose 142 5. History of hypertension [] Dragon Disclaimer: Dragon Disclaimer: This electronic medical record was generated, in whole or in part, using a voice recognition dictation system. Departure Departure: Referrals: NICOLAS FU MD (PCP) Jeovany Disclaimer This chart was dictated in whole or in part using Voice Recognition software in a busy, high-work load, and often noisy Emergency Department environment. It may contain unintended and wholly unrecognized errors or omissions. CHARLOTTE ERIC MD Apr 28, 2020 19:59
[2020-04-28] MEDS ORDERED: IV RINGERS SOLUTION,LACTATED 1,000 ML IV SCH (20:15)
[2020-04-28] MEDS ORDERED: POTASSIUM CHLORIDE 20 MEQ TABLET.ER. PO ONE ×2 (20:15→21:42)
[2020-04-28 20:47] LABS: BASO % 0 % (0-3); EOS # 0.1 x10^3/uL (0.0-0.7); EOS % 1 % (0-3); HEMATOCRIT 40.8 % (36.0-47.0); HEMOGLOBIN 13.5 g/dL (12.0-15.5); LYMPH # 1.5 x10^3/uL (1.0-4.8); LYMPH % 16 % (24-48); MEAN CORPUSCULAR HEMOGLOBIN 28 pg (25-35); MEAN CORPUSCULAR HGB CONC 33 g/dL (31-37); MEAN CORPUSCULAR VOLUME 84 fL (79-100); MONO # 0.9 x10^3/uL (0.0-1.1); MONO % 9 % (0-9); NEUT % 74 % (31-73); PLATELET COUNT 238 x10^3/uL (140-400); RED BLOOD COUNT 4.83 x10^6/uL (3.50-5.40); RED CELL DISTRIBUTION WIDTH 14.5 % (11.5-14.5); WHITE BLOOD COUNT 9.5 x10^3/uL (4.0-11.0)
--- NOTE | 2020-04-28 20:51 | RAD ---
Exam: Chest one view INDICATION: Chest pain TECHNIQUE: Frontal view of the chest Comparisons: 12/20/2019 FINDINGS: Heart is mildly enlarged. Pulmonary vessels are within normal limits. The lung and pleural spaces are clear. IMPRESSION: No acute pulmonary process. Electronically signed by: Hector Jeffers MD (04/28/2020 8:48 PM) YI
[2020-04-28 21:06] LABS: CALCIUM 9.4 mg/dL (8.5-10.1); CREATININE 1.4 mg/dL (0.6-1.0); DIRECT BILIRUBIN 0.2 mg/dL (0.0-0.2); GFR 37.7; MAGNESIUM 2.7 mg/dL (1.8-2.4); TOTAL BILIRUBIN 0.5 mg/dL (0.2-1.0); TOTAL PROTEIN 7.6 g/dL (6.4-8.2)
[2020-04-28 21:08] LABS: POTASSIUM 1.9 mmol/L (3.5-5.1)
[2020-04-28] MEDS ORDERED: MAGNESIUM SULFATE 1GM 100 ML IV ONE (21:30)
[2020-04-28] MEDS ORDERED: ACETAMINOPHEN 325 MG TABLET PO PRN (21:30)
[2020-04-28] MEDS ORDERED: ONDANSETRON PF 4 MG/2 ML VIAL. IVP PRN (21:30)
[2020-04-28 23:10] VITALS: BP 110/66
--- NOTE | 2020-04-29 00:51 | NUR ---
The patient, BLOSSOM ROSARIO, 64 y/o, F admitted by NICOLAS BARRIENTOS MD, was given written information regarding hospital policies, unit procedures and contact persons. Valuables were checked and vital signs noted. PT presented to her PCP for labs in preparation of surgery on 05/03/20 for breast cancer. In office, PT's potassium noted to be 2.4, advised to go to ER. At ER, level lower and PT admitted to hospital for replacement. PT currently not on treatment with chemo or radiation. Reviewed with PT her PMH, PSH, SH, FH and medications. Spoke with radha via telephone contact and received medication list.
--- NOTE | 2020-04-29 00:51 | EKG ---
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
[2020-04-29] MEDS ORDERED: POTA10TA5 PO (01:03)
[2020-04-29] MEDS ORDERED: METO5TAB4 PO (01:03)
[2020-04-29] MEDS ORDERED: CHOL500021 PO (01:03)
[2020-04-29] MEDS ORDERED: ATOR40TA59 PO (01:03)
[2020-04-29] MEDS ORDERED: PANT40TA6 PO (01:03)
[2020-04-29] MEDS ORDERED: ASPI-630 PO (01:03)
[2020-04-29] MEDS ORDERED: PRAM0.255 PO (01:03)
[2020-04-29] MEDS ORDERED: FLUT1BLS9 IH (01:03)
[2020-04-29] MEDS ORDERED: ALBU2.5V8 INH (01:03)
[2020-04-29] MEDS ORDERED: OXYC13.5 PO (01:03)
[2020-04-29] MEDS ORDERED: HYDR-2769 PO (01:03)
[2020-04-29] MEDS ORDERED: TOPI50TA38 PO (01:03)
[2020-04-29] MEDS ORDERED: TORS20TA2 PO ×2 (01:03)
[2020-04-29 05:39] LABS: CALCIUM 9.1 mg/dL (8.5-10.1); CREATININE 1.1 mg/dL (0.6-1.0); GFR 49.8
[2020-04-29 05:46] LABS: POTASSIUM 2.3 mmol/L (3.5-5.1)
[2020-04-29 05:58] VITALS: BP 126/71
[2020-04-29 05:58] LABS: BASO # 0.1 x10^3/uL (0.0-0.2); BASO % 0 % (0-3); EOS # 0.1 x10^3/uL (0.0-0.7); EOS % 1 % (0-3); HEMATOCRIT 39.1 % (36.0-47.0); LYMPH # 1.5 x10^3/uL (1.0-4.8); LYMPH % 17 % (24-48); MEAN CORPUSCULAR HEMOGLOBIN 28 pg (25-35); MEAN CORPUSCULAR HGB CONC 33 g/dL (31-37); MEAN CORPUSCULAR VOLUME 85 fL (79-100); MONO # 0.8 x10^3/uL (0.0-1.1); MONO % 10 % (0-9); NEUT # 6.1 x10^3uL (1.8-7.7); NEUT % 72 % (31-73); PLATELET COUNT 219 x10^3/uL (140-400); RED BLOOD COUNT 4.59 x10^6/uL (3.50-5.40); RED CELL DISTRIBUTION WIDTH 14.4 % (11.5-14.5); WHITE BLOOD COUNT 8.5 x10^3/uL (4.0-11.0)
[2020-04-29] MEDS ORDERED: FLUTICASONE PROPION IH PRN (08:15)
[2020-04-29] MEDS ORDERED: HYDROcodone/APAP 10/325 1 TAB TABLET PO PRN (08:15)
[2020-04-29] MEDS ORDERED: SALMETEROL IH PRN (08:15)
[2020-04-29] MEDS ORDERED: PANTOPRAZOLE 40 MG TABLET. PO PRN (08:15)
[2020-04-29] MEDS ORDERED: MAGNESIUM SULFATE 1GM 100 ML IV ONE (08:15)
--- NOTE | 2020-04-29 08:56 | HP ---
ADMIT DATE: 04/28/2020 ATTENDING PHYSICIAN: Dr. Barrientos. CHIEF COMPLAINT: Low potassium. HISTORY OF PRESENT ILLNESS: The patient is a 64-year-old female followed by Dr. Becker's office. She has been drinking quite a bit of fluids. As a result, she had a pedal edema, worsening of her congestive heart failure. She was given higher doses of her loop diuretic, Demadex along with metolazone. A followup blood work showed a potassium level 1.9 mEq per liter. She was called to come into the hospital for replacement. She denied any palpitations or arrhythmias. She denied any pain. She does have a history of remotely congestive heart failure. She is admitted then for further treatment of critical low potassium values. PAST MEDICAL HISTORY: Significant for a ventriculoperitoneal shunt placed at [facility] in [facility]. She does not know the details. I suspect she had hydrocephalus at that time. In addition, she has had 4 sections and right rotator cuff repair. She also has type 2 diabetes, gastroesophageal reflux disease, sleep apnea, morbid obesity, essential hypertension, seizure disorder, arthritis, venous stasis, dermatitis. ALLERGIES: She has no known drug allergies. SOCIAL HISTORY: She is a nonsmoker, nondrinker. FAMILY HISTORY: Noncontributory. OTHER SURGICAL HISTORY: Includes gastric bypass surgery and ventriculoperitoneal shunt 40 years ago. REVIEW OF SYSTEMS: Unremarkable for any COVID exposure, fevers, chills, cough, congestion, or diarrhea. All other systems reviewed and turned to be negative. PHYSICAL EXAMINATION: GENERAL: When I saw her, this is a very pleasant elderly female who was very alert and oriented. INITIAL VITAL SIGNS: Showed a blood pressure 138/63, pulse is 74 and regular, temperature 98.1 degrees Fahrenheit, and her oxygen saturation were 92% on room air. HEENT: Head is without trauma. Pupils are reactive. Sclerae nonicteric. Oropharynx clear. NECK: Supple. No stridor, no bruits. LUNGS: Good breath sounds. CARDIOVASCULAR: Showed regular heart tones. No gallops. No palpitations. No extra systolic beats. No murmurs identified. ABDOMEN: Obese, protuberant. No organomegaly. Bowel sounds are hypoactive. EXTREMITIES: Showed still remnants of 2+ pitting edema extending up to her knees. SKIN: Warm and dry. NEUROLOGIC: The patient's cranial nerves were intact. Her certified ethical hacker were intact. Speech is fluent. She had no focal deficits. PERTINENT LABORATORY STUDIES: Her initial hemoglobin was 13.5 g/dL with a white count of 9500. Initial potassium was 1.9 mEq, creatinine 1.1 mg/dL, nonfasting blood sugar 127. CURRENT MEDICATIONS: Her scheduled medications include cephalexin, albuterol, Lipitor, aspirin, hydrocodone, Topamax, Mirapex, torsemide, metolazone, potassium, fluticasone, Protonix, and vitamin D3. ASSESSMENT: 1. This 64-year-old female has a significant hypokalemia measured at 1.9 mEq per liter. This is due to her diuretics. 2. Pedal edema due to excess fluid ingestion. 3. Remote history of congestive heart failure. I do not have details and whether systolic or diastolic. 4. Morbid obesity. 5. Essential hypertension. 6. History of ventriculoperitoneal shunt. 7. Gastroesophageal reflux disease. 8. Labile hypertension. PLAN: 1. Admit to the inpatient unit. 2. Telemetry monitoring. 3. Oral potassium supplements. 4. Concomitant magnesium replacement due to refractory hypokalemia due to hypomagnesemia. The magnesium levels are not accurate because the majority of magnesium is bound to protein, but she will respond with intravenous magnesium. 5. Serial chemistries. 6. Daily weights. 7. 1200 mL daily fluid restriction. 8. We will hold off her diuretics for now. She will probably go home on a maintenance dose of her loop diuretic. 9. Serial chemistries. NICOLAS BARRIENTOS MD DR: MINISTERIO/mervin JOB#: [id number] / [id number] NICOLAS Davis
[2020-04-29] MEDS ORDERED: POTASSIUM CHLORIDE 20 MEQ TABLET.ER. PO SCH (09:00)
[2020-04-29] MEDS ORDERED: TOPIRAMATE 25 MG TABLET. PO SCH (09:00)
[2020-04-29] MEDS: ASPIRIN CHEWABLE 81 MG TABLET. PO SCH ×2 (09:00→09:27)
[2020-04-29] MEDS ORDERED: CEPHALEXIN PO SCH (09:00)
[2020-04-29] MEDS ORDERED: PRAMIPEXOLE 0.5 MG TABLET. PO SCH (09:00)
[2020-04-29] MEDS ORDERED: OXYCODONE MYRISTATE PO SCH (09:00)
[2020-04-29] MEDS ORDERED: CHOLECALCIFEROL (VITAMIN D3) 50,000 UNIT CAPSULE PO SCH (09:00)
--- NOTE | 2020-04-29 10:47 | NUR ---
NURSING NOTE DISCHARGE PT REQUEST TO BE DISCHARGED STATING SHE HAS TO GO GET HER TEETH TODAY, A THIS EVENING, A COVID SWAB SUNDAY MORNING FOR A SURGERY ON SUNDAY AND STATES SHE CANNOT STAY IN THE HOSPITAL TODAY. PT DISCHARGED PER DR BARRIENTOS. PT GIVEN WRITTEN AND VERBAL DISCHARGE INSTRUCTIONS. PT GIVEN SCRIPT FOR POTASSIUM. PT EDUCATED ABOUT HYPOKALEMIA SIGNS/SYMPTOMS/RISK FACTORS. PT WHEELED TO FRONT DOOR PICKED UP BY . JENARO YING.
--- NOTE | 2020-04-29 10:51 | DS ---
DATE OF DISCHARGE: 04/29/2020 ATTENDING PHYSICIAN: Dr. Barrientos. FINAL DISCHARGE DIAGNOSES: 1. Asymptomatic hypokalemia from diuretics. 2. Pedal edema due to excess fluid ingestion. 3. Remote history of congestive heart failure, compensated. 4. Morbid obesity. 5. Essential hypertension. 6. History of ventriculoperitoneal shunt 40 years ago. 7. Gastroesophageal reflux disease. 8. Labile hypertension HISTORY OF PRESENT ILLNESS: The patient is a very pleasant 64-year-old female with pedal edema. She had been given extra doses of diuretics. She had a lab work done in the office, which showed a potassium level of 1.9 mEq. She was instructed to go to the ER for admission. PHYSICAL EXAMINATION: Please see my dictated note. PERTINENT LABORATORY AND X-RAY STUDIES: Admission potassium was indeed 1.9 mEq, repeated the next day, came up to 2.3 mEq per liter; sodium 136, creatinine is 1.1 mg/dL. Hemoglobin maintained at 13.0 g/dL with white count 8500. EKG and cardiac rhythm strip showed no arrhythmia. Her strip showed sinus rhythm. Blood pressure and vital signs are stable. COURSE IN THE HOSPITAL: The patient was admitted. She was started on oral supplementation with p.o. potassium as well as intravenous magnesium replacement for refractory hypokalemia due to hypomagnesemia. She did well. I admitted her. The plan was to keep her for several days since the potassium level came up; however, she had a family emergency. She had a nephew who had by his own hand. There is a ____ she wanted to go today. She requested on going home. I reviewed her medication, blood pressure and vital signs. Her rhythm was stable. She had no arrhythmias. At this time, I think it is reasonable. I therefore wrote a script for K-Dur 20 mEq b.i.d. for a total of 2-week supply. We held her torsemide for now. In addition, she will go home with her scheduled cephalexin, albuterol, Lipitor, aspirin, hydrocodone p.r.n., Topamax, Mirapex, potassium 20 mEq b.i.d. For now, we held torsemide and metolazone. She will continue her fluticasone, Protonix, vitamin D. I suggested a followup visit in the next 7-[address] Becker to recheck her electrolytes and when to restart her diuretics. The patient was then discharged from our hospital in stable condition with explicit instructions and followup care. NICOLAS BARRIENTOS MD DR: MINISTERIO/mervin JOB#: [id number] / [id number] NICOLAS Davis
[2020-04-29] MEDS ORDERED: ATORVASTATIN CALCIUM 20 MG TABLET PO SCH (21:00)
[2020-05-01 11:53] LABS: THYROID STIM HORMONE (TSH) 0.644 uIU/mL (0.358-3.740)
== END 2020-04-29 10:49 | disposition home or self-care (01) ==
LOC: ER 19:52 → 1 SOUTH 21:50 → INTOOBSV 21:50
PROVIDERS: ADMIT Hospitalist; ATTEND Hospitalist
DX: E87.6 Hypokalemia (principal); R60.0 Localized edema; I11.0 Hypertensive heart disease with heart failure; I50.9 Heart failure, unspecified; E11.9 Type 2 diabetes mellitus without complications; E66.01 Morbid (severe) obesity due to excess calories; E83.42 Hypomagnesemia; G40.909 Epilepsy, unspecified, not intractable, without status epilepticus; I87.8 Other specified disorders of veins; K21.9 Gastro-esophageal reflux disease without esophagitis; T50.2X5A Adverse effect of carbonic-anhydrase inhibitors, benzothiadiazides and other diuretics, initial encounter; Z90.710 Acquired absence of both cervix and uterus; Z98.2 Presence of cerebrospinal fluid drainage device; Z98.84 Bariatric surgery status; Z98.890 Other specified postprocedural states; Z68.42 Body mass index [BMI] 45.0-49.9, adult
CPT/HCPCS: 36415; 71045; 80048; 80061; 80076; 82550; 82947; 83690; 83735; 83880; 84443; 84484; 85025; 85379; 85610; 85730; 93005; 96361; 96365; 96366; 99285; G0238; G0378; J3475; J7120; G0379

== ENCOUNTER 2020-06-03 08:45 | Emergency (ER) | payer OTHER, MEDICAID ==
[~2020-06-03] VITALS: Ht 160 cm; Wt 130.0 kg
[~2020-06-03 08:45] MED LIST changes: +ALBU2.5V8 INH; +ASPI-630 PO; +ATOR40TA59 PO; +CHOL500021 PO; +FLUT1BLS9 IH; +HYDR-2769 PO; +METO5TAB4 PO; +OXYC13.5 PO; +PANT40TA6 PO; +POTA10TA5 PO; +PRAM0.255 PO; +TOPI50TA38 PO; +TORS20TA2 PO
--- NOTE | 2020-06-03 09:44 | PHYS DOC ---
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 Patient reports that her physician took her off her diuretics about a month ago and she went on a trip shortly after, upon returning from the trip she reports increased lower extremity edema and reports she contacted her physician who resumed her Lasix at 80 mg twice daily. She reports that she has been on the Lasix for approximately a week and has been urinating a lot, however cannot seem to get the swelling off her legs and presents today because her physician told her to be evaluated by the emergency room if the swelling does not resolve also reports a knot in her right medial thigh that increases when her legs swell up like they are on presentation. Denies current blood thinner use, past DVT or PE, chest pain, shortness of breath, or worsening sciatic leg pain. Review of Systems Review of Systems Constitutional: Denies fever or chills Eyes: Denies change in visual acuity, redness, or eye pain HENT: Denies nasal congestion or sore throat Respiratory: Denies cough or shortness of breath Cardiovascular: Admits lower extremity edema bilaterally worse on the right than the left GI: Denies abdominal pain, nausea, vomiting, bloody stools or diarrhea dilute : Denies dysuria or hematuria Musculoskeletal: Denies back pain or joint pain. Integument: Denies rash or skin lesions Neurologic: Denies headache, focal weakness or sensory changes Endocrine: Denies polyuria or polydipsia All other systems were reviewed and found to be within normal limits, except as documented in this note. Allergies Allergies Allergies Coded Allergies Type Severity Reaction Last Updated Verified No Known Drug Allergies 11/02/19 No Physical Exam Physical Exam Constitutional: Well developed, well nourished, no acute distress, non-toxic appearance. HENT: Normocephalic, atraumatic, bilateral external ears normal, oropharynx moist, no oral exudates, nose normal. Eyes: PERRLA, EOMI, conjunctiva normal, no discharge. Neck: Normal range of motion, no tenderness, supple, no stridor. Cardiovascular:Heart rate regular rhythm, no murmur Lungs & Thorax: Bilateral breath sounds clear to auscultation Abdomen: Bowel sounds normal, soft, no tenderness, no masses, no pulsatile masses. Skin: Warm, dry, no erythema, no rash. Back: No tenderness, no CVA tenderness. Extremities: No tenderness, no cyanosis, no clubbing, ROM intact. 2+ pitting edema bilaterally, no posterior popliteal swelling or pain on palpation, no posterior calf tenderness or swelling. 2/4 DP and PT pulses bilaterally. Both extremities have sensation intact. 5 out of 5 strength in both legs. Neurologic: Alert and oriented X 3, normal motor function, normal sensory function, no focal deficits noted. Psychologic: Affect normal, judgement normal, mood normal. Current Patient Data Vital Signs Vital Signs Date Time Temp Pulse Resp B/P (MAP) Pulse Ox O2 Delivery O2 Flow Rate FiO2 06/03/20 09:10 97.4 62 16 189/68 (108) 96 Room Air Lab Results Laboratory Tests Test 06/03/20 09:42 White Blood Count 7.3 x10^3/uL Red Blood Count 4.42 x10^6/uL Hemoglobin 12.3 g/dL Hematocrit 37.6 % Mean Corpuscular Volume 85 fL Mean Corpuscular Hemoglobin 28 pg Mean Corpuscular Hemoglobin Concent 33 g/dL Red Cell Distribution Width 15.3 % Platelet Count 199 x10^3/uL Neutrophils (%) (Auto) 74 % Lymphocytes (%) (Auto) 16 % Monocytes (%) (Auto) 7 % Eosinophils (%) (Auto) 3 % Basophils (%) (Auto) 0 % Neutrophils # (Auto) 5.4 x10^3uL Lymphocytes # (Auto) 1.2 x10^3/uL Monocytes # (Auto) 0.5 x10^3/uL Eosinophils # (Auto) 0.2 x10^3/uL Basophils # (Auto) 0.0 x10^3/uL Sodium Level 144 mmol/L Potassium Level 4.0 mmol/L Chloride Level 108 mmol/L Carbon Dioxide Level 29 mmol/L Anion Gap 7 Blood Urea Nitrogen 13 mg/dL Creatinine 0.6 mg/dL Estimated GFR (Cockcroft-Gault) 100.3 BUN/Creatinine Ratio 22 Glucose Level 113 mg/dL Calcium Level 9.0 mg/dL Magnesium Level 2.3 mg/dL Total Bilirubin 0.3 mg/dL Aspartate Amino Transf (AST/SGOT) 24 U/L Alanine Aminotransferase (ALT/SGPT) 30 U/L Alkaline Phosphatase 69 U/L Troponin I Quantitative < 0.017 ng/mL [id number] Natriuretic Peptide 182 pg/mL Total Protein 6.8 g/dL Albumin 3.5 g/dL Albumin/Globulin Ratio 1.1 EKG EKG EKG ordered and interpreted by myself at 0959 hrs. as sinus rhythm at 70 bpm, unremarkable intervals, no axis deviation, no acute ischemic findings, no STEMI Radiology/Procedures Radiology/Procedures XR CHEST 1V INDICATION: Reason: CHF exacerbation / Spl. Instructions: / History: . COMPARISON STUDY: 04/28/2020. FINDINGS: Ventriculoperitoneal shunt tubing overlying the right neck and mediastinum. Lungs: Normal lung volume. No consolidation. Pleura: No pleural effusion or pneumothorax. Heart and Mediastinum: Cardiomegaly. Atherosclerosis of the thoracic aorta. IMPRESSION: No consolidation. Electronically signed by: Tate Allen MD (06/03/2020 9:58 AM) [id number] Heart Score C/O Chest Pain: No HEART Score for Chest Pain: HEART Score for Chest Pain Response (Comments) Value History Slighlty/Non-Suspicious 0 ECG Normal 0 Age >45 - < 65 1 Risk Factors 1 or 2 Risk Factors 1 Troponin < Normal Limit 0 Total 2 Risk Factors: Risk Factors: DM, Current or recent (<one month) smoker, HTN, HLP, family history of CAD, obesity. Risk Scores: Risk Factors: DM, Current or recent (<one month) smoker, HTN, HLP, family history of CAD, obesity. Course & Med Decision Making Course & Med Decision Making Patient is a 64-year-old female presenting with concerns of worsening lower extremity edema bilaterally. Exam was notable for vitals within normal limits and 2+ pitting edema bilaterally, no proximal nasal dyspnea, lungs clear. CBC, CMP, magnesium, troponin, EKG, and chest x-ray were obtained. Chest x-ray displayed no acute infiltrate, EKG was not significant for urgent/emergent pathology, laboratory data was within normal limits. Discussion was had with patient regarding comfort level of being discharged home with sodium and water restriction with instructions to record daily p.o. intake and strict monitoring of weight. She is established with local maori physiotherapist, I advised her to contact them immediately after ER departure to review current diuretic use in addition to utilizing compression stockings and elevating extremities in addition to increase physical activity at home. Strict return precautions discussed with good understanding by patient and significant other, all questions and concerns addressed prior to ER departure Dragon Disclaimer Dragon Disclaimer This electronic medical record was generated, in whole or in part, using a voice recognition dictation system. Departure Departure: Impression: Primary Impression: Bilateral lower extremity edema Additional Impression: CHF, chronic Disposition: DC HOME SELF CARE/HOMELESS Condition: STABLE Referrals: NICOLAS FU MD (PCP) Patient Instructions: Heart Failure, [id number], Sodium and Fluid Restriction Additional Instructions: You were seen for bilateral leg swelling. You are clinically fluid overloaded likely due to increased sodium and water intake. You should try to use a compression stocking which should help with your swelling. Keep your feet elevated at night time to help with the swelling as well. As discussed, please call your maori physiotherapist immediately after ER departure to review need for increased diuretics and/or other medication due to increased fluid status. Please return to the ED if you develop new or worsening symptoms prior to outpatient follow-up. Problem Qualifiers NICOLE CORREA DO Jun 03, 2020 09:44
--- NOTE | 2020-06-03 10:01 | RAD ---
XR CHEST 1V INDICATION: Reason: CHF exacerbation / Spl. Instructions: / History: . COMPARISON STUDY: 04/28/2020. FINDINGS: Ventriculoperitoneal shunt tubing overlying the right neck and mediastinum. Lungs: Normal lung volume. No consolidation. Pleura: No pleural effusion or pneumothorax. Heart and Mediastinum: Cardiomegaly. Atherosclerosis of the thoracic aorta. IMPRESSION: No consolidation. Electronically signed by: Tate Allen MD (06/03/2020 9:58 AM) [id number]
[2020-06-03 10:04] LABS: BASO % 0 % (0-3); EOS # 0.2 x10^3/uL (0.0-0.7); EOS % 3 % (0-3); HEMATOCRIT 37.6 % (36.0-47.0); HEMOGLOBIN 12.3 g/dL (12.0-15.5); LYMPH # 1.2 x10^3/uL (1.0-4.8); LYMPH % 16 % (24-48); MEAN CORPUSCULAR HEMOGLOBIN 28 pg (25-35); MEAN CORPUSCULAR HGB CONC 33 g/dL (31-37); MEAN CORPUSCULAR VOLUME 85 fL (79-100); MONO # 0.5 x10^3/uL (0.0-1.1); MONO % 7 % (0-9); NEUT # 5.4 x10^3uL (1.8-7.7); NEUT % 74 % (31-73); PLATELET COUNT 199 x10^3/uL (140-400); RED BLOOD COUNT 4.42 x10^6/uL (3.50-5.40); RED CELL DISTRIBUTION WIDTH 15.3 % (11.5-14.5); WHITE BLOOD COUNT 7.3 x10^3/uL (4.0-11.0)
[2020-06-03 10:19] LABS: CREATININE 0.6 mg/dL (0.6-1.0); GFR 100.3
[2020-06-03 10:31] LABS: ALBUMIN 3.5 g/dL (3.4-5.0); ALBUMIN/GLOBULIN RATIO 1.1 (1.0-1.7); MAGNESIUM 2.3 mg/dL (1.8-2.4); TOTAL BILIRUBIN 0.3 mg/dL (0.2-1.0); TOTAL PROTEIN 6.8 g/dL (6.4-8.2)
[2020-06-03 11:10] VITALS: BP 137/92
--- NOTE | 2020-06-03 13:58 | EKG ---
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
== END 2020-06-03 11:30 | disposition home or self-care (01) ==
LOC: ER 08:45
DX: R60.0 Localized edema (principal); I11.0 Hypertensive heart disease with heart failure; I50.9 Heart failure, unspecified; E11.9 Type 2 diabetes mellitus without complications; K21.9 Gastro-esophageal reflux disease without esophagitis; G89.29 Other chronic pain; Z87.891 Personal history of nicotine dependence
CPT/HCPCS: 36415; 71045; 80053; 83735; 83880; 84484; 85025; 93005; 99285-25

== ENCOUNTER → 2020-07-01 | Outpatient (CLI) | payer OTHER, MEDICAID ==
[2020-06-03 11:10] VITALS: BP 137/92
--- NOTE | 2020-07-02 04:08 | RAD ---
INDICATION: Screening for osteopenia/osteoporosis. Postmenopausal evaluation. COMPARISON: None. TECHNIQUE: Bone densitometry was performed through the lumbar spine, distal radius and proximal femu r. IMPRESSION: Lumbar Spine: BMD: 1.17 T-Score: -0.1 Range: Normal Proximal Femur: BMD: 0.74 T-Score: -1.7 Range: Osteopenic Distal radius: BMD 0.33 T score -5.4 Range: Osteoporotic World Health Organization Criteria for Bone Density: T-Score: > -1.0: Normal Range < -1.0 to -2.5: Osteopenic Range < -2.5: Osteoporotic Range Electronically signed by: Jermain Schmid MD (07/02/2020 4:05 AM) [id number]
== END ==
LOC: DXRAD 14:07
PROVIDERS: ATTEND Internal Medicine Hematology & Oncology
DX: D05.12 Intraductal carcinoma in situ of left breast (principal); Z78.0 Asymptomatic menopausal state
CPT/HCPCS: 77080

== ENCOUNTER 2020-07-23 17:52 | Emergency (ER) | payer OTHER, MEDICAID ==
[~2020-07-23] VITALS: Ht 160 cm; Wt 130.0 kg
--- NOTE | 2020-07-23 19:53 | PHYS DOC ---
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 Patient states "I have CHF and I have had to be hospitalized for this before". "I take 80 Lasix in the morning and 80 at night". 2+ pitting edema on bilateral legs. Patient does report some shortness of breath with ambulation. Patient wears 2 L of O2 at night for sleep apnea. Patient does report slight tenderness to the legs. Patient denies fever, cough. Patient has history of diabetes, hypertension, GERD seizures. (TACO GUARDADO APRN) Review of Systems: Review of Systems: Constitutional: Denies fever or chills Eyes: Denies change in visual acuity HENT: Denies nasal congestion or sore throat Respiratory: Denies cough, reports shortness of breath with ambulation Cardiovascular: Denies chest pain, reports bilateral leg swelling GI: Denies abdominal pain, nausea, vomiting, bloody stools or diarrhea : Denies dysuria Musculoskeletal: Denies back pain or joint pain Integument: Denies rash Neurologic: Denies headache, focal weakness or sensory changes Endocrine: Denies polyuria or polydipsia Lymphatic: Denies swollen glands Psychiatric: Denies depression or anxiety (TACO GUARDADO APRN) Allergies: Allergies: Allergies Coded Allergies Type Severity Reaction Last Updated Verified No Known Drug Allergies 11/02/19 No (TACO GUARDADO APRN) Physical Exam: PE: Constitutional: Well developed, well nourished, no acute distress, non-toxic appearance. [] HENT: Normocephalic, atraumatic, bilateral external ears normal, oropharynx moist, no oral exudates, nose normal. [] Eyes: PERRLA, EOMI, conjunctiva normal, no discharge. [] Neck: Normal range of motion, no tenderness, supple, no stridor. [] Cardiovascular:Heart rate regular rhythm, no murmur [] Lungs & Thorax: Bilateral breath sounds clear to auscultation [] Abdomen: Bowel sounds normal, soft, no tenderness, no masses, no pulsatile masses. [] Skin: Warm, dry, no erythema, no rash. [] Back: No tenderness, no CVA tenderness. [] Extremities: Bilateral leg tenderness, ROM intact, 2+ pitting edema Neurologic: Alert and oriented X 3, normal motor function, normal sensory function, no focal deficits noted. [] Psychologic: Affect normal, judgement normal, mood normal. [] (TACO GUARDADO APRN) Current Patient Data: Vital Signs: Vital Signs Date Time Temp Pulse Resp B/P (MAP) Pulse Ox O2 Delivery O2 Flow Rate FiO2 07/23/20 19:31 98.3 72 18 117/99 (105) 95 Room Air (TACO GUARDADO APRN) EKG: EKG: [] (TACO GUARDADO APRN) EKG: My interpretation of EKG shows a sinus rhythm at 69 bpm. No findings of acute STEMI with contralateral changes. (CHARLOTTE ERIC MD) Radiology/Procedures: Radiology/Procedures: [] (TACO GUARDADO APRN) Radiology/Procedures: [place] [id number] IMAGING REPORT Signed PATIENT: BLOSSOM ROSARIO ACCOUNT: [id number] : 1955 LOCATION: ER AGE: 64 SEX: F EXAM STATUS: REG ER ORD. PHYSICIAN: TACO GUARDADO APRN REASON: bilateral leg swelling PROCEDURE: CHEST AP ONLY XR CHEST 1V History: Reason: bilateral leg swelling / Spl. Instructions: / History: Comparison: June 03, 2020 Findings: No consolidation or pleural effusion. Enlarged cardiac size, unchanged. No pneumothorax. Partially imaged right-sided catheter. Impression: 1. No acute cardiopulmonary process. Electronically signed by: Gino Edwards DO (07/23/2020 8:45 PM) [facility] DICTATED AND SIGNED BY: GINO EDWARDS DO DATE: 07/23/202043 CC: NICOLAS BECKER MD; CHARLOTTE ERIC MD; TACO GUARDADO APRN ~MTH0 0 (CHARLOTTE ERIC MD) Heart Score: C/O Chest Pain: No Risk Factors: Risk Factors: DM, Current or recent (<one month) smoker, HTN, HLP, family history of CAD, obesity. Risk Scores: Score 0 - 3: 2.5% MACE over next 6 weeks - Discharge Home Score 4 - 6: 20.3% MACE over next 6 weeks - Admit for Clinical Observation Score 7 - 10: 72.7% MACE over next 6 weeks - Early Invasive Strategies (TACO GUARDADO APRN) HEART Score for Chest Pain: HEART Score for Chest Pain Response (Comments) Value History Slighlty/Non-Suspicious 0 ECG Normal 0 Age > 65 2 Risk Factors 1 or 2 Risk Factors 1 Troponin < Normal Limit 0 Total 3 Course & Med Decision Making: Course & Med Decision Making Pertinent Labs and Imaging studies reviewed. (See chart for details) [] 64-year-old female presents with bilateral leg edema and tenderness. 2+ pitting edema bilateral legs. Patient takes 80 mg of Lasix in the morning and 80 mg of Lasix at night. Patient has had to be hospitalized before for CHF exacerbation. Patient does report some shortness of breath with ambulation. transfer of patient care to (TACO GUARDADO APRN) Course & Med Decision Making See Taco MILNER note for details prior 2030 hrs. Pt. take meds as previously directed. Follow up with Dr. Becker. Impression: 1. Bilateral Leg Edema and Pain 2. Hx. Breast Cancer- S/P surgery, completed last Radiation tx today, and on hor steve suppression med.tx. 3. Hx. CHF ( on Lasix- ) (CHARLOTTE ERIC MD) Dragon Disclaimer: Dragon Disclaimer: This electronic medical record was generated, in whole or in part, using a voice recognition dictation system. (TACO GUARDADO APRN) Departure Departure: Referrals: NICOLAS BECKER MD (PCP) Dragon Disclaimer This chart was dictated in whole or in part using Voice Recognition software in a busy, high-work load, and often noisy Emergency Department environment. It may contain unintended and wholly unrecognized errors or omissions. (CHARLOTTE ERIC MD) Attending Signature Attending Signature I have participated in the care of this patient and I have reviewed and agree with all pertinent clinical information above including history, exam, and recommendations. (CHARLOTTE ERIC MD) TACO GUARDADO APRN July 23, 2020 19:53 CHARLOTTE ERIC MD July 23, 2020 20:24
[2020-07-23 20:33] LABS: BASO % 0 % (0-3); EOS # 0.1 x10^3/uL (0.0-0.7); EOS % 2 % (0-3); HEMATOCRIT 37.3 % (36.0-47.0); LYMPH # 0.7 x10^3/uL (1.0-4.8); LYMPH % 11 % (24-48); MEAN CORPUSCULAR HEMOGLOBIN 27 pg (25-35); MEAN CORPUSCULAR HGB CONC 32 g/dL (31-37); MEAN CORPUSCULAR VOLUME 85 fL (79-100); MONO # 0.4 x10^3/uL (0.0-1.1); MONO % 7 % (0-9); NEUT # 4.8 x10^3uL (1.8-7.7); NEUT % 80 % (31-73); PLATELET COUNT 177 x10^3/uL (140-400); RED BLOOD COUNT 4.41 x10^6/uL (3.50-5.40); RED CELL DISTRIBUTION WIDTH 16.7 % (11.5-14.5)
[2020-07-23 20:35] LABS: CALCIUM 8.6 mg/dL (8.5-10.1); CREATININE 0.7 mg/dL (0.6-1.0); POTASSIUM 3.9 mmol/L (3.5-5.1)
--- NOTE | 2020-07-23 20:47 | RAD ---
XR CHEST 1V History: Reason: bilateral leg swelling / Spl. Instructions: / History: Comparison: June 03, 2020 Findings: No consolidation or pleural effusion. Enlarged cardiac size, unchanged. No pneumothorax. Partially im aged right-sided catheter. Impression: 1. No acute cardiopulmonary process. Electronically signed by: Gino Edwards DO (07/23/2020 8:45 PM) [facility]
[2020-07-23 20:48] LABS: ALBUMIN 3.3 g/dL (3.4-5.0); ALBUMIN/GLOBULIN RATIO 1.1 (1.0-1.7); TOTAL BILIRUBIN 0.2 mg/dL (0.2-1.0); TOTAL PROTEIN 6.4 g/dL (6.4-8.2)
[2020-07-23] MEDS ORDERED: metOLazone 5 MG TABLET PO ONE (22:00)
--- NOTE | 2020-07-23 22:06 | EKG ---
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
[2020-07-23 22:29] VITALS: BP 127/85
== END 2020-07-23 22:33 | disposition home health service (06) ==
LOC: ER 17:52
DX: R60.0 Localized edema (principal); I11.0 Hypertensive heart disease with heart failure; I50.9 Heart failure, unspecified; K21.9 Gastro-esophageal reflux disease without esophagitis; E11.9 Type 2 diabetes mellitus without complications; Z90.710 Acquired absence of both cervix and uterus; Z87.891 Personal history of nicotine dependence
CPT/HCPCS: 36415; 71045; 80053; 82550; 83880; 84484; 85025; 93005; 99285-25

== ENCOUNTER 2020-08-16 16:47 | Inpatient (IN) | payer OTHER, MEDICAID ==
[~2020-08-16] VITALS: Ht 160 cm; Wt 118.2 kg
[~2020-08-16 16:47] MED LIST changes: -ANAS1TAB47 PO; -FURO80TA3 PO; -LEVO50TA5 PO; -POTA20TA4 PO; -TOPI50TA8 PO
--- NOTE | 2020-08-16 17:23 | PHYS DOC ---
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; RIGHT ROTATOR CUFF REPAIR (BEVERLYDISHA M DO) Smoking: Quit Greater Than 1 Year Alcohol Use: None Drug Use: None (BEVERLYDISHA M DO) General Adult EDM: Chief Complaint: ABNORMAL LABS HPI: HPI: 64-year-old female past medical history significant for hydrocephalus with ROLL OPERATOR shunt, CHF and hypertension (BEVERLYDISHA M DO) Review of Systems: Review of Systems: Constitutional: Denies fever or chills Eyes: Denies change in visual acuity HENT: Denies nasal congestion or sore throat Respiratory: Denies cough or shortness of breath Cardiovascular: Denies chest pain or edema GI: Denies abdominal pain, nausea, vomiting, bloody stools or diarrhea : Denies dysuria Musculoskeletal: Denies back pain or joint pain Integument: Denies rash Neurologic: Denies headache, focal weakness or sensory changes Endocrine: Denies polyuria or polydipsia Lymphatic: Denies swollen glands Psychiatric: Denies depression or anxiety (BEVERLYDISHA DO) Allergies: Allergies: Allergies Coded Allergies Type Severity Reaction Last Updated Verified No Known Drug Allergies 11/02/19 No (BEVERLYDISHA M DO) Physical Exam: PE: Constitutional: Well developed, well nourished, no acute distress, non-toxic appearance. HENT: Normocephalic, atraumatic, Eyes: EOMI, conjunctiva normal, no discharge. Neck: Normal range of motion, supple, Cardiovascular: S1/2 present, regular rhythm Lungs & Thorax: Speaking in full sentences, bilateral equal chest rise, no tachypnea or increased work of breathing Abdomen: soft, no tenderness, Skin: Warm, dry, no erythema, no rash. [] Back: No tenderness, no CVA tenderness. [] Extremities: No tenderness, no cyanosis, no lower extremity edema Neurologic: Alert and oriented X 3, normal motor function, normal sensory function, no focal deficits noted. [] Psychologic: Affect normal, judgement normal, mood normal. [] (BEVERLYDISHA DO) EKG: EKG: Sinus rhythm at 72 bpm, no axis deviation, normal intervals, T wave inversion 1, aVL, no ST elevations or ST depressions, Q waves in 3 and aVF, no active chest pain (DISHA PAUL DO) Radiology/Procedures: Radiology/Procedures: IMAGING REPORT Signed PATIENT: BLOSSOM ROSARIO ACCOUNT: [id number] : 1955 LOCATION: ER AGE: 64 SEX: F EXAM STATUS: REG ER ORD. PHYSICIAN: DISHA PAUL DO REASON: low potassium PROCEDURE: CHEST PA & LATERAL XR CHEST 2V History: Reason: low potassium / Spl. Instructions: / History: Comparison: July 23, 2020 Findings: Patchy bibasilar opacities. No pleural effusion. No pneumothorax. Partially imaged shunt catheter. Unchanged heart size. Impression: 1. Patchy bibasilar opacities, may represent atelectasis or developing infiltrates. Electronically signed by: Gino Edwards DO (08/16/2020 6:02 PM) [facility] DICTATED AND SIGNED BY: GINO EDWARDS DO DATE: 08/16/20 1800 CC: NICOLAS FU MD; DISHA PAUL DO ~MTH0 0 (DISHA PAUL DO) Heart Score: C/O Chest Pain: No Risk Factors: Risk Factors: DM, Current or recent (<one month) smoker, HTN, HLP, family history of CAD, obesity. Risk Scores: Score 0 - 3: 2.5% MACE over next 6 weeks - Discharge Home Score 4 - 6: 20.3% MACE over next 6 weeks - Admit for Clinical Observation Score 7 - 10: 72.7% MACE over next 6 weeks - Early Invasive Strategies (DISHA PAUL DO) Course & Med Decision Making: Course & Med Decision Making Pertinent Labs and Imaging studies reviewed. (See chart for details) Patient accepted by Dr. Medina. Patient stable to admission and agrees this plan. I have spoken with the patient and/or caregivers. I have explained the patient's condition, diagnosis and treatment plan based on the information available to me at this time. I have answered the patient's and/or caregivers questions and answered any concerns. The patient and/or caregivers have as good an understanding of the patient's diagnosis, condition and treatment plan as can be expected at this point. The patient has been stabilized within the capability of the emergency department. The patient will be transported for further care and management or will be moved to an observation or inpatient service. I have communicated with the staff or medical practitioner taking over this patient's care. (DISHA PAUL DO) Course & Med Decision Making See [facility] chart for details- Pt. has been admitted to Dr. Medina Impression; 1. Hypokalemia- 2.2- Current being txed. 2. Elevated serum magnesium level 2.8 (CHARLOTTE ERIC MD) Dragon Disclaimer: Dragon Disclaimer: This electronic medical record was generated, in whole or in part, using a voice recognition dictation system. (DISHA PAUL DO) Departure Departure: Impression: Primary Impression: Hypokalemia Disposition: ADMITTED INPATIENT Admitting Physician: Chris Medina (DISHA PAUL DO) Condition: STABLE Referrals: NICOLAS FU MD (PCP) DISHA PAUL DO Aug 16, 2020 17:23 CHARLOTTE ERIC MD Aug 16, 2020 19:07
[2020-08-16] MEDS ORDERED: POTASSIUM CL 40MEQ IN 0.9%NACL 1,000 ML IV ONE (17:45)
[2020-08-16] MEDS ORDERED: POTASSIUM CHLORIDE 20 MEQ TABLET.ER. PO ONE (17:45)
[2020-08-16 17:52] LABS: ALBUMIN 3.7 g/dL (3.4-5.0); CALCIUM 8.9 mg/dL (8.5-10.1); GFR 55.6; MAGNESIUM 2.8 mg/dL (1.8-2.4); TOTAL BILIRUBIN 0.6 mg/dL (0.2-1.0); TOTAL PROTEIN 7.3 g/dL (6.4-8.2)
[2020-08-16 17:58] LABS: BASO % 0 % (0-3); EOS % 1 % (0-3); HEMATOCRIT 39.1 % (36.0-47.0); HEMOGLOBIN 12.9 g/dL (12.0-15.5); LYMPH # 0.7 x10^3/uL (1.0-4.8); LYMPH % 8 % (24-48); MEAN CORPUSCULAR HEMOGLOBIN 27 pg (25-35); MEAN CORPUSCULAR HGB CONC 33 g/dL (31-37); MEAN CORPUSCULAR VOLUME 83 fL (79-100); MONO # 0.7 x10^3/uL (0.0-1.1); MONO % 8 % (0-9); NEUT # 6.9 x10^3uL (1.8-7.7); NEUT % 83 % (31-73); PLATELET COUNT 195 x10^3/uL (140-400); RED BLOOD COUNT 4.72 x10^6/uL (3.50-5.40); RED CELL DISTRIBUTION WIDTH 16.4 % (11.5-14.5); WHITE BLOOD COUNT 8.4 x10^3/uL (4.0-11.0)
--- NOTE | 2020-08-16 18:04 | RAD ---
XR CHEST 2V History: Reason: low potassium / Spl. Instructions: / History: Comparison: July 23, 2020 Findings: Patchy bibasilar opacities. No pleural effusion. No pneumothorax. Partially imaged shunt catheter. Un changed heart size. Impression: 1. Patchy bibasilar opacities, may represent atelectasis or developing infiltrates. Electronically signed by: Gino Edwards DO (08/16/2020 6:02 PM) [facility]
[2020-08-16 18:06] LABS: POTASSIUM 2.2 mmol/L (3.5-5.1)
--- NOTE | 2020-08-16 19:04 | EKG ---
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
[2020-08-16 20:55] LABS: CREATININE 0.9 mg/dL (0.6-1.0); GFR 62.8
[2020-08-16 20:56] VITALS: BP 148/80
[2020-08-16 20:59] LABS: POTASSIUM 2.8 mmol/L (3.5-5.1)
[2020-08-16] MEDS: POTASSIUM CHLORIDE 10MEQ 100 ML IV SCH ×2 (21:43→22:58)
[2020-08-16 22:27] VITALS: BP 127/69
[2020-08-16] MEDS ORDERED: ANAS1TAB47 PO (23:07)
[2020-08-16] MEDS ORDERED: LEVO50TA5 PO (23:07)
[2020-08-16] MEDS ORDERED: METO5TAB4 PO (23:07)
[2020-08-16] MEDS ORDERED: TOPI50TA8 PO (23:07)
[2020-08-16] MEDS ORDERED: POTA20TA4 PO (23:07)
[2020-08-17] MEDS: POTASSIUM CHLORIDE 10MEQ 100 ML IV SCH ×2 (00:56)
[2020-08-17] MEDS: HYDROcodone/APAP 10/325 1 TAB TABLET PO PRN ×2 (00:57→22:03)
[2020-08-17] MEDS ORDERED: ALBUTEROL SULFATE 2.5 MG/3 ML NEBU. ONE (05:10)
[2020-08-17] MEDS: LEVOTHYROXINE 50 MCG TABLET PO SCH (05:39)
[2020-08-17 05:43] VITALS: BP 128/74
[2020-08-17] MEDS: POTASSIUM CHLORIDE 20 MEQ TABLET.ER. PO SCH ×5 (08:22→20:38)
[2020-08-17] MEDS: TOPIRAMATE 100 MG TABLET. PO SCH ×2 (08:23→20:38)
[2020-08-17] MEDS: PANTOPRAZOLE 40 MG TABLET. PO SCH (08:23)
[2020-08-17] MEDS: ASPIRIN CHEWABLE 81 MG TABLET. PO SCH (08:23)
[2020-08-17] MEDS: DOCUSATE SODIUM 100 MG CAPSULE PO SCH (08:23)
[2020-08-17] MEDS: PRAMIPEXOLE 0.5 MG TABLET. PO SCH ×2 (09:10→20:38)
[2020-08-17] MEDS: ANASTROZOLE 1 MG TABLET PO SCH (09:10)
[2020-08-17 10:32] VITALS: BP 121/67
[2020-08-17] MEDS: BUDESONIDE 0.5 MG/2 ML NEBU NEB SCH ×2 (11:14→19:56)
[2020-08-17] MEDS: ALBUTEROL SULFATE 2.5 MG/3 ML NEBU. NEB SCH ×3 (11:17→19:56)
[2020-08-17] MEDS ORDERED: FURO80TA3 PO (13:13)
--- NOTE | 2020-08-17 13:26 | HP ---
HISTORY OF PRESENT ILLNESS: The patient is and he is a 64-year-old female patient who presented to the emergency room of [facility] with abnormal labs. Apparently, her potassium was checked at her oncologist's office and was found to be low and therefore, she was sent to the emergency room of [facility] where repeat lab work confirmed that her potassium was extremely low at 2.2. The patient was admitted to replenish her potassium. The patient did complain of generalized weakness, but denied any other complaint. Surprisingly, her kidney function was normal with a BUN of 29, creatinine 1 despite being on 80 mg of Lasix twice a day and metolazone 5 mg once a day. PAST MEDICAL HISTORY: Significant for what seemed to be chronic diastolic congestive heart failure, hypertension, hyperlipidemia, hypothyroidism, chronic obstructive pulmonary disease, seizure disorder, generalized osteoarthritis, worse in both knee joints. PAST SURGICAL HISTORY: Significant for , gastric bypass surgery, STRAIN TECHNICIAN shunt placement, right rotator cuff repair, left breast lumpectomy, treated with radiation and chemotherapy and total abdominal hysterectomy, bilateral salpingo-oophorectomy. ALLERGIES: She has no known drug allergies. MEDICATIONS: She is on anastrozole or Arimidex 1 mg once a day, albuterol sulfate ProAir 1 puff every 6 hours, atorvastatin calcium 40 mg daily, aspirin 81 mg once a day, hydrocodone/APAP 10/325 one tablet every 8 hours, Xtampza extended release 13.5 mg twice a day, topiramate 50 mg 3 times a day, topiramate 50 mg twice a day, she takes 3 tablets 3 times a day, Mirapex 1 mg twice a day, potassium chloride she takes 2 tablets twice a day, potassium chloride 20 mEq she takes 40 mEq twice a day, metolazone 5 mg once a day, fluticasone propionate/salmeterol ___ one inhalation twice a day, Protonix 40 mg once a day, levothyroxine sodium 50 mcg once a day, cholecalciferol, vitamin D3 50,000 units p.o. weekly. She should also have been on furosemide 80 mg twice a day. FAMILY HISTORY: She has three older sisters and 3 younger sister. One of her younger sister at age of 47 because of myocardial infarction. She has one brother older and has type 2 diabetes and congestive heart failure. Her mother at age of 56 because of colon cancer. Father at age of 78 because of colon cancer. SOCIAL HISTORY: She is , has 2 daughters and 2 sons. She quit smoking in 2011. She does not drink alcohol or recreational drugs. She is currently on disability. 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 REVIEW OF SYSTEMS: The patient denied any blurring of vision, cataracts, glaucoma or macular degeneration. Denied any earache, tinnitus or sensorineural deafness. Denied any sore throat, sore tongue, toothache, hoarseness of voice or difficulty swallowing. Denied any nausea, vomiting, diarrhea or constipation. Denied any hematemesis, melena or hematochezia. Denied any dysuria, frequency or hematuria. Denied any chest pain, shortness of breath, orthopnea, paroxysmal nocturnal dyspnea. Denied any cough, phlegm or hemoptysis. Denied any dizziness, lightheadedness or vertigo. PHYSICAL EXAMINATION: GENERAL: On arrival to the emergency room, she looked well and was clearly in no apparent respiratory distress. There is no pallor, jaundice, cyanosis from thyromegaly. No jugular venous distention, but mild bilateral lower limb edema. VITAL SIGNS: Her heart rate was 83, blood pressure is 129/66, temperature was 98.6, respiratory rate 20, and oxygen saturation was 94% on room air. HEENT: Examination of the head, eyes, nose and throat: Normocephalic, atraumatic. NECK: Supple. HEART: Showed normal first and second heart sounds, no gallop, murmur. CHEST: Clear to auscultation. No crepitation or rhonchi. ABDOMEN: Markedly distended, soft, nontender. NEUROLOGIC: She was awake, alert, responding appropriately. Cranial nerves intact. She moves extremities without difficulty. She ambulates with a walker. LABORATORY DATA: On admission showed a white cell count of 8400, hemoglobin 13, hematocrit 39, MCV 83 and platelet count of 195,000 with normal manual differential. Her chemistry on admission showed a serum sodium of 132, potassium 2.2, chloride 89, bicarbonate 35, with anion gap of 8, BUN 29, creatinine 1, estimated GFR was 55 mL per minute. Her glucose 181, calcium was 8.8, magnesium was 2.8. Total bilirubin, AST, ALT, alkaline phosphatase were normal. Her total protein 7.3, albumin 3.7. Her chest x-ray showed the patient has patchy bibasilar opacities. No pleural effusion or pneumothorax. Partially imaged shunt catheter, unchanged heart size. ASSESSMENT AND PLAN: The patient was admitted basically with profound hypokalemia secondary to excessive diuresis due to metolazone and furosemide. We will basically restrict fluid intake and hold the diuretics and replenish her potassium. She did receive also magnesium. We will repeat all her lab work and if her potassium is replenished, we will probably discharge her back home to continue on her diuretics as well. We will add spironolactone as her potassium sparing agent. MIGUEL DR: Georgette TID: [id number]
[2020-08-17 15:03] VITALS: BP 139/69
[2020-08-17 17:02] LABS: CALCIUM 8.8 mg/dL (8.5-10.1); CREATININE 0.7 mg/dL (0.6-1.0)
[2020-08-17 17:03] LABS: POTASSIUM 2.6 mmol/L (3.5-5.1)
[2020-08-17 19:32] VITALS: BP 144/76
[2020-08-17] MEDS ORDERED: ATORVASTATIN CALCIUM 20 MG TABLET PO SCH (21:00)
[2020-08-17 23:18] VITALS: BP 102/63
[2020-08-18] MEDS: ALBUTEROL SULFATE 2.5 MG/3 ML NEBU. NEB SCH (05:18)
[2020-08-18] MEDS: LEVOTHYROXINE 50 MCG TABLET PO SCH (05:25)
[2020-08-18 05:38] VITALS: BP 125/74
[2020-08-18] MEDS: POTASSIUM CHLORIDE 20 MEQ TABLET.ER. PO SCH (07:49)
[2020-08-18] MEDS: DOCUSATE SODIUM 100 MG CAPSULE PO SCH (07:50)
[2020-08-18] MEDS: HYDROcodone/APAP 10/325 1 TAB TABLET PO PRN (07:50)
[2020-08-18] MEDS: PANTOPRAZOLE 40 MG TABLET. PO SCH (07:50)
[2020-08-18] MEDS: TOPIRAMATE 100 MG TABLET. PO SCH (07:50)
[2020-08-18] MEDS: PRAMIPEXOLE 0.5 MG TABLET. PO SCH (07:50)
[2020-08-18] MEDS: ASPIRIN CHEWABLE 81 MG TABLET. PO SCH (07:50)
[2020-08-18] MEDS: ANASTROZOLE 1 MG TABLET PO SCH (07:51)
--- NOTE | 2020-08-18 09:36 | DS ---
DATE OF DISCHARGE: 08/18/2020 ATTENDING PHYSICIAN: Dr. Medina and Dr. Benjamin. FINAL DISCHARGE DIAGNOSES: 1. Hypokalemia due to diuretics. 2. History of breast cancer, getting radiation therapy. 3. Morbid obesity. 4. Gastric bypass surgery. 5. History of ventriculoperitoneal shunt. 6. Essential hypertension. 7. Chronic diastolic heart failure by history. 8. Hypothyroidism, on replacement. 9. Chronic obstructive pulmonary disease. 10. Seizure disorder. 11. Generalized osteoarthritis in both knees. HISTORY AND PHYSICAL: This 68-year-old female with multiple medical issues. Drinks quite a bit of fluid daily. She is on 80 twice a day of Lasix with the addition of metolazone. She was weak and her potassium was low at 2.2 mEq. She was admitted for further treatment and evaluation. PHYSICAL EXAMINATION: Please see the dictated note. PERTINENT LABORATORY AND X-RAY STUDIES: Admission potassium 2.2 replaced later in the evening was up to 2.8 and eventually the next day was up to 3.2 mEq. Sugars were adequate. Creatinine was 0.7 mg percent. COURSE IN THE HOSPITAL: The patient was admitted on 08/16 and discharged on 08/18. She received intravenous potassium, magnesium and oral supplementation. We continued her Lasix. We held the metolazone. She did well. Potassium levels were improved. Her home meds were continued. She was eating well. Sugars were adequate. On the third hospital day, her vital signs are stable. She wanted to go home. I felt this is reasonable. Therefore, she is discharged home with continuation of her Lasix 80 b.i.d. I encouraged her to weigh herself every day and keep within a narrow range. Whether she understands this remains to be seen. In addition, she should continue her potassium supplementation 40 mEq b.i.d., albuterol, aspirin, Lipitor, vitamin D3, fluticasone, Lasix 80 b.i.d., hydrocodone p.r.n., Synthroid 50 mcg daily, Protonix, potassium supplementation, Mirapex b.i.d. and Topamax 150 mg b.i.d. Strong encouragement for limitation of her oral fluids. I think she understands. She is discharged in a stable condition with explicit drug and followup care. Total discharge time is 38 minutes. MINISTERIO/ZACK DR: Rikki TID: [id number] CC: NICOLAS FU
[2020-08-23] MEDS ORDERED: CHOLECALCIFEROL (VITAMIN D3) 50,000 UNIT CAPSULE PO SCH (09:00)
== END 2020-08-18 09:25 | disposition home or self-care (01) | DRG 641 ==
LOC: ER 16:47 → 1 SOUTH 19:23
PROVIDERS: ADMIT Internal Medicine; ATTEND Internal Medicine
DX: E87.6 Hypokalemia (principal); I50.32 Chronic diastolic (congestive) heart failure; Z68.42 Body mass index [BMI] 45.0-49.9, adult; G89.29 Other chronic pain; E03.9 Hypothyroidism, unspecified; E66.01 Morbid (severe) obesity due to excess calories; E78.5 Hyperlipidemia, unspecified; I11.0 Hypertensive heart disease with heart failure; G40.909 Epilepsy, unspecified, not intractable, without status epilepticus; J44.9 Chronic obstructive pulmonary disease, unspecified; T50.2X5A Adverse effect of carbonic-anhydrase inhibitors, benzothiadiazides and other diuretics, initial encounter; M17.0 Bilateral primary osteoarthritis of knee; Y92.89 Other specified places as the place of occurrence of the external cause; Z80.0 Family history of malignant neoplasm of digestive organs; Z82.49 Family history of ischemic heart disease and other diseases of the circulatory system; Z83.3 Family history of diabetes mellitus; Z98.84 Bariatric surgery status; Z92.3 Personal history of irradiation; Z90.710 Acquired absence of both cervix and uterus; Z87.891 Personal history of nicotine dependence; Z85.3 Personal history of malignant neoplasm of breast
CPT/HCPCS: 36415; 71046; 80048; 80053; 82947; 83735; 84132; 85025; 93005; 94640; 94760; 96365; 96366; J3480; 99285-25; J7613

== ENCOUNTER → 2020-08-16 | Outpatient (CLI) | payer OTHER, MEDICAID ==
[2020-07-23 22:29] VITALS: BP 127/85
[~2020-08-16] MED LIST changes: +ANAS1TAB47 PO; +FURO80TA3 PO; +LEVO50TA5 PO; +POTA20TA4 PO; +TOPI50TA8 PO
[2020-08-16 11:11] LABS: BASO % 0 % (0-3); EOS # 0.1 x10^3/uL (0.0-0.7); EOS % 1 % (0-3); HEMATOCRIT 40.5 % (36.0-47.0); HEMOGLOBIN 13.6 g/dL (12.0-15.5); LYMPH # 0.6 x10^3/uL (1.0-4.8); LYMPH % 9 % (24-48); MEAN CORPUSCULAR HEMOGLOBIN 28 pg (25-35); MEAN CORPUSCULAR HGB CONC 34 g/dL (31-37); MEAN CORPUSCULAR VOLUME 84 fL (79-100); MONO # 0.6 x10^3/uL (0.0-1.1); MONO % 8 % (0-9); NEUT % 83 % (31-73); PLATELET COUNT 207 x10^3/uL (140-400); RED BLOOD COUNT 4.85 x10^6/uL (3.50-5.40); RED CELL DISTRIBUTION WIDTH 16.4 % (11.5-14.5); WHITE BLOOD COUNT 7.3 x10^3/uL (4.0-11.0)
[2020-08-16 12:47] LABS: ALBUMIN 3.9 g/dL (3.4-5.0); CALCIUM 9.2 mg/dL (8.5-10.1); CREATININE 0.9 mg/dL (0.6-1.0); GFR 62.8; TOTAL BILIRUBIN 0.8 mg/dL (0.2-1.0); TOTAL PROTEIN 7.8 g/dL (6.4-8.2)
[2020-08-16 12:53] LABS: POTASSIUM 2.2 mmol/L (3.5-5.1)
== END ==
LOC: LAB 10:01
PROVIDERS: ATTEND Internal Medicine Hematology & Oncology
DX: C50.112 Malignant neoplasm of central portion of left female breast (principal)
CPT/HCPCS: 36415; 80053; 85025

== ENCOUNTER 2021-01-22 18:20 | Emergency (ER) | payer OTHER, MEDICAID ==
[~2021-01-22] VITALS: Ht 160 cm; Wt 118.2 kg
[~2021-01-22 18:20] MED LIST changes: +ANAS1TAB47 PO; +FURO80TA3 PO; +LEVO50TA5 PO; +POTA-112 PO; +POTA-121 PO; -POTA10TA5 PO; +TOPI50TA8 PO
[2021-01-22 18:35] VITALS: BP 152/71
[2021-01-22] MEDS ORDERED: methylPREDNISolone SOD SUCC PF 125 MG/2 ML VIAL. IV ONE (19:00)
--- NOTE | 2021-01-22 19:06 | PHYS DOC ---
Past History Past Medical History: COPD, Diabetes, Hypertension, Seizure, TIA Additional Past Medical Histor: chronic pain knees, irregular heart beat (ELAINE LIRIANO APRN) Past Surgical History: Other Additional Past Surgical Histo: FORENSICS TEAM DIRECTOR SHUNT IN HEAD; RIGHT ROTATOR CUFF REPAIR (ELAINE LIRIANO APRN) Smoking: Quit Greater Than 1 Year Alcohol Use: None Drug Use: None (ELAIEN LIRIANO APRN) General Adult EDM: Chief Complaint: POST-OP PROBLEM HPI: HPI: Patient is a 65-year-old female who presents to the emergency department for increased shortness of breath. Patient reports that she has a history of COPD and wears 2 L via nasal cannula at night but her shortness of breath has worsened and now she has to wear 2 L via nasal cannula at all times. Patient denies any current cigarette use. She reports that she had a thyroidectomy on January 18 at [facility] and has a ANDRES drain placed. Patient also has a FORENSICS TEAM DIRECTOR shunt that was placed in 1979. She believes that the ANDRES drain is too close to the FORENSICS TEAM DIRECTOR shunt which is causing her shortness of breath. Patient has a follow- up appointment with her surgeon at on January 25. Patient is on 3 L via nasal cannula in the emergency department and her oxygen saturation is 92%. Patient denies cough, fever, abdominal pain, nausea, vomiting, chest pain. (ELAINE LIRIANO APRN) Review of Systems: Review of Systems: 14 body systems of the review of systems have been reviewed. See HPI for pertinent positive and negative responses, otherwise all other systems are negative, nonpertinent or noncontributory (ELAINE LIRIANO APRN) Allergies: Allergies: Allergies Coded Allergies Type Severity Reaction Last Updated Verified No Known Drug Allergies 11/02/19 No (ELAINE LIRIANO APRN) Physical Exam: PE: Constitutional: Well developed, well nourished, no acute distress, non-toxic appearance. [] HENT: Normocephalic, atraumatic, bilateral external ears normal, oropharynx moist, no oral exudates, nose normal. [] Eyes: PERRL, EOMI, conjunctiva normal, no discharge. [] Neck: Normal range of motion, no tenderness, supple, no stridor, ANDRES drain noted to right side of neck with small amount of drainage in bulb, no surrounding signs of infection. [] Cardiovascular:Heart rate regular rhythm, no murmur [] Lungs & Thorax: Wheezing noted throughout Abdomen: Bowel sounds normal, soft, no tenderness, no masses, no pulsatile masses. [] Skin: Warm, dry, no erythema, no rash. [] Back: No tenderness, normal range of motion Extremities: No tenderness, no cyanosis, no clubbing, ROM intact, no edema. [] Neurologic: Alert and oriented X 3, normal motor function, normal sensory function, no focal deficits noted. [] Psychologic: Affect normal, judgement normal, mood normal. [] (ELAINE LIRIANO APRN) Current Patient Data: Labs: Laboratory Tests Test 01/22/21 19:40 01/22/21 19:45 White Blood Count 7.4 x10^3/uL Red Blood Count 4.70 x10^6/uL Hemoglobin 12.7 g/dL Hematocrit 40.0 % Mean Corpuscular Volume 85 fL Mean Corpuscular Hemoglobin 27 pg Mean Corpuscular Hemoglobin Concent 32 g/dL Red Cell Distribution Width 16.7 % Platelet Count 203 x10^3/uL Neutrophils (%) (Auto) 85 % Lymphocytes (%) (Auto) 5 % Monocytes (%) (Auto) 8 % Eosinophils (%) (Auto) 2 % Basophils (%) (Auto) 0 % Neutrophils # (Auto) 6.3 x10^3uL Lymphocytes # (Auto) 0.4 x10^3/uL Monocytes # (Auto) 0.6 x10^3/uL Eosinophils # (Auto) 0.1 x10^3/uL Basophils # (Auto) 0.0 x10^3/uL Sodium Level 144 mmol/L Potassium Level 4.1 mmol/L Chloride Level 106 mmol/L Carbon Dioxide Level 34 mmol/L Anion Gap 4 Blood Urea Nitrogen 13 mg/dL Creatinine 0.7 mg/dL Estimated GFR (Cockcroft-Gault) 83.7 BUN/Creatinine Ratio 19 Glucose Level 138 mg/dL Lactic Acid Level 0.6 mmol/L Calcium Level 8.3 mg/dL Total Bilirubin 0.2 mg/dL Aspartate Amino Transf (AST/SGOT) 16 U/L Alanine Aminotransferase (ALT/SGPT) 20 U/L Alkaline Phosphatase 86 U/L Troponin I High Sensitivity 12 ng/L AZ-Szn-[id number]-Type Natriuretic Peptide 295 pg/mL Total Protein 6.4 g/dL Albumin 3.4 g/dL Albumin/Globulin Ratio 1.1 Influenza Type A (Rapid) Negative Influenza Type B (Rapid) Negative SARS-CoV-2 Antigen (Rapid) Negative Current Medications Medications (Trade) Dose Ordered Sig/Rivka Route PRN Reason Start Time Stop Time Status Last Admin Dose Admin Methylprednisolone Sodium Succinate (SOLU-Medrol 125MG VIAL) 125 mg 1X ONCE IV 01/22/21 19:00 01/22/21 19:01 DC 01/22/21 19:55 Iohexol (Omnipaque 350 Mg/ml) 100 ml 1X ONCE IV 01/22/21 19:30 01/22/21 19:31 DC 01/22/21 20:08 Info (Do NOT chart on this entry -- for MONITORING) 1 each PRN DAILY PRN MC SEE COMMENTS 01/22/21 19:15 01/24/21 19:14 Albuterol/ Ipratropium (Duoneb) 3 ml 1X ONCE NEB 01/22/21 19:30 01/22/21 19:31 DC 01/22/21 19:34 Fentanyl Citrate (Fentanyl 2ml Vial) 50 mcg 1X ONCE IVP 01/22/21 20:45 01/22/21 20:46 DC 01/22/21 20:51 Vital Signs: Vital Signs Date Time Temp Pulse Resp B/P (MAP) Pulse Ox O2 Delivery O2 Flow Rate FiO2 01/22/21 18:35 98.4 93 24 152/71 (98) 93 Nasal Cannula 2.0 (ELAINE LIRIANO INSTRUCTIONAL MATERIALS DIRECTOR) EKG: EKG: EKG performed by ER staff at 1930 shows sinus rhythm with rate of 73, qtc 429, no stemi read by Dr. Garcia at 1940[] (ELAINE LIRIANO INSTRUCTIONAL MATERIALS DIRECTOR) Radiology/Procedures: Radiology/Procedures: []PROCEDURE: CT HEAD WO CONTRAST Exam: CT head INDICATION: Recent FORENSICS TEAM DIRECTOR shunt TECHNIQUE: Sequential axial images through the head were obtained without the administration of IV contrast. Exposure: One or more of the following in the visualized dose reduction techniques were utilized for this examination: 1. Automated exposure control 2. Adjustment of the MA and/or KV according to patient size 3. Use of iterative of reconstructive technique Comparisons: None FINDINGS: Rounded masslike area in the right frontoparietal region measuring approximately 5.3 x 3.0 cm. No intracranial hemorrhage is identified. There is a right frontal approach ventriculostomy catheter tip at the anterior left lateral ventricle. No acute vascular territory infarction is identified. Valente-white distinction is preserved. There is compression of the right lateral ventricle. The basal cisterns are well maintained. The visualized portions of the paranasal sinuses and mastoid air cells are well- pneumatized. No acute fractures. IMPRESSION: 1. FORENSICS TEAM DIRECTOR shunt catheter tubing is described above. Compression of the right lateral ventricle. Correlate with prior imaging if available. 2. Masslike area in the right frontoparietal region measuring approximately 5.3 x 3.0 cm which is incompletely characterized on CT. Correlate with patient's history. If necessary this would be better evaluated with MRI of the brain with contrast. Electronically signed by: Hector Hooker MD (01/22/2021 9:09 PM) [facility] DICTATED AND SIGNED BY: HECTOR HOOKER MD DATE: 01/22/212102 CC: NICOLAS FU MD; ELAINE LIRIANO APRN ~MTH0 0 PROCEDURE: CT ANGIOGRAPHY CHEST Exam: CT of chest with contrast INDICATION: Dyspnea, recent surgery TECHNIQUE: Sequential axial images through the chest obtained following the administration of 99 mL of Isovue-370 IV contrast. Sagittal and coronal reformatted images were reconstructed from the axial data and reviewed. 3-D reformatted images were reconstructed from the axial data and reviewed. Exposure: One or more of the following in the visualized dose reduction techniques were utilized for this examination: 1. Automated exposure control 2. Adjustment of the MA and/or KV according to patient size 3. Use of iterative of reconstructive technique Comparisons: Chest x-ray 08/16/2020 FINDINGS: Partial thyroidectomy changes. Soft tissue drain noted at the thyroidectomy site. No enlarged mediastinal lymph nodes are identified. Heart size is at the upper limits of normal. No pericardial effusion. Thoracic aorta has a normal course and caliber. Pulmonary artery is not enlarged. No pulmonary embolus identified within the main, lobar or segmental pulmonary arteries. Airways are patent. There is a moderate to large right-sided pneumothorax. Compressive atelectasis of the right lung is noted. No pleural effusion or thickening. Postoperative changes at the stomach. Limited rich adenoma at the right adrenal gland. No suspicious osseous lesions or acute fractures. IMPRESSION: 1. Moderate to large right pneumothorax. 2. No pulmonary embolus identified within the main, lobar or segmental pulmonary arteries. 3. Partial thyroidectomy changes with a drain at the thyroidectomy bed. FOR INTERNAL CODING PURPOSES Critical result: Findings discussed with Elaine Liriano at 01/22/2021 9:14 PM. RESULT CODE: (C) Electronically signed by: Hector Hooker MD (01/22/2021 9:18 PM) [facility] DICTATED AND SIGNED BY: HECTOR HOOKER MD DATE: 01/22/212110 CC: NICOLAS FU MD; ELAINE LIRIANO APRN ~MTH0 0 (ELAINE LIRIANO APRN) Heart Score: C/O Chest Pain: No Risk Factors: Risk Factors: DM, Current or recent (<one month) smoker, HTN, HLP, family history of CAD, obesity. Risk Scores: Score 0 - 3: 2.5% MACE over next 6 weeks - Discharge Home Score 4 - 6: 20.3% MACE over next 6 weeks - Admit for Clinical Observation Score 7 - 10: 72.7% MACE over next 6 weeks - Early Invasive Strategies (ELAINE LIRIANO APRN) Course & Med Decision Making: Course & Med Decision Making Pertinent Labs and Imaging studies reviewed. (See chart for details) [] Patient presents to the emergency department for increased shortness of breath. Patient had a thyroidectomy on January 18 at [facility], she has a history of a previous FORENSICS TEAM DIRECTOR shunt. She states that she believes the ANDRES drain is in the FORENSICS TEAM DIRECTOR shunt and that is was causing her shortness of breath. Patient wears 2 L via nasal cannula at all times. However she is needed to titrate up to 2L at all times and is 92% on 4 L in the emergency department today. Work-up in the ER consisted of blood work, EKG, CT of chest to rule out PE, CT of head and neck to investigate the ANDRES drain placement in the FORENSICS TEAM DIRECTOR shunt. Patient is also tested for influenza and COVID-19. Patient treated with Solu-Medrol and a DuoNeb. Patient is requesting pain medication for her chronic leg pain and this was ordered.Since CBC and CMP were unremarkable. She had negative Covid and influenza testing. No lactic acidosis. Patient's BNP was mildly elevated at 295 which is consistent with her previous findings. Patients CT scan of head shows right frontalparietal mass like area without hemorrhage, no acute abnormality of evp strategy shunt. CTA shows moderate-large right pneumothorax. ABG shows ph of 7.22, pco2 of 78 and po2 of 63, hco3 32. I discussed these findings with supervising physician and discussed treatment plan. I contacted [facility] transfer team regarding transfer of patient for pneumothorax post tonsillectomy and andres drain placement. [facility] to contact cardiothoracic physician regarding transfer of patient. Awaiting call from transfer team at this time. Care transferred due to shift change at 2230. (ELAINE LIRIANO APRN) Course & Med Decision Making Patient care handed off to me at checkout pending acceptance by . Patient alert and oriented no acute distress. Chest tube in and successfully placed. Vital signs improving. [facility] excepted transfer. Discussed findings with family who agreed with plan of transfer and admission to . (VIRGILIO GARCIA MD) Dragon Disclaimer: Dragon Disclaimer: This electronic medical record was generated, in whole or in part, using a voice recognition dictation system. (ELAINE LIRIANO APRN) Chest Tube Chest Tube Indication:right pneumothorax Consent: consent signed by patient Pre-Medication: Fentanyl Procedure: The patient was placed in a semirecumbent position with the head of the bed at 30 degrees. Right side. Local anesthesia over the insertion site was 1% lidocaine. An incision was made right 4th intercostal space at midaxillary line Blunt dissection up and over the rib was performed until access was obtained into the pleural cavity. A 10. Somali chest tube was placed and connected to wet seal pleuivac. Bubbling noted. The tube was sutured in place and the site was covered with an occlusive dressing. All connections were banded. Breath sounds after the procedure were present. A chest x-ray was obtained to evaluate placement and placement was confirmed. The patient tolerated the procedure Complications: none (ELAINE LIRIANO APRN) Departure Departure: Impression: Primary Impression: Pneumothorax Qualified Codes: J95.811 - Postprocedural pneumothorax Disposition: 02 SHORT TERM HOSPITAL Condition: STABLE Referrals: NICOLAS FU MD (PCP) ELAINE LIRIANO APRN Jan 22, 2021 19:06 VIRGILIO GARCIA MD Jan 22, 2021 22:50
[2021-01-22] MEDS ORDERED: CONTRAST GIVEN. MC PRN (19:15)
[2021-01-22] MEDS ORDERED: IOHEXOL 350 MG/ML 100 ML VIAL. IV ONE (19:30)
[2021-01-22] MEDS ORDERED: IPRATRPIUM/ALBUTEROL 0.5/2.5MG 3 ML NEBU. NEB ONE (19:30)
[2021-01-22 20:03] LABS: BASO % 0 % (0-3); EOS # 0.1 x10^3/uL (0.0-0.7); EOS % 2 % (0-3); HEMOGLOBIN 12.7 g/dL (12.0-15.5); LYMPH # 0.4 x10^3/uL (1.0-4.8); LYMPH % 5 % (24-48); MEAN CORPUSCULAR HEMOGLOBIN 27 pg (25-35); MEAN CORPUSCULAR HGB CONC 32 g/dL (31-37); MEAN CORPUSCULAR VOLUME 85 fL (79-100); MONO # 0.6 x10^3/uL (0.0-1.1); MONO % 8 % (0-9); NEUT # 6.3 x10^3uL (1.8-7.7); NEUT % 85 % (31-73); PLATELET COUNT 203 x10^3/uL (140-400); RED CELL DISTRIBUTION WIDTH 16.7 % (11.5-14.5); WHITE BLOOD COUNT 7.4 x10^3/uL (4.0-11.0)
[2021-01-22 20:14] LABS: CALCIUM 8.3 mg/dL (8.5-10.1); CREATININE 0.7 mg/dL (0.6-1.0); GFR 83.7; POTASSIUM 4.1 mmol/L (3.5-5.1)
[2021-01-22 20:22] LABS: INFLUENZA A PATIENT NEGATIVE (NEGATIVE); INFLUENZA B PATIENT NEGATIVE (NEGATIVE)
[2021-01-22 20:27] LABS: ALBUMIN 3.4 g/dL (3.4-5.0); ALBUMIN/GLOBULIN RATIO 1.1 (1.0-1.7); TOTAL BILIRUBIN 0.2 mg/dL (0.2-1.0); TOTAL PROTEIN 6.4 g/dL (6.4-8.2)
--- NOTE | 2021-01-22 21:12 | RAD ---
Exam: CT head INDICATION: Recent ORDER BUILDER shunt TECHNIQUE: Sequential axial images through the head were obtained without the administration of IV co ntrast. Exposure: One or more of the following in the visualized dose reduction techniques were utilized for this examination: 1. Automated exposure control 2. Adjustment of the MA and/or KV according to patient size 3. Use of iterative of reconstructive technique Comparisons: None FINDINGS: Rounded masslike area in the right frontoparietal region measuring approximately 5.3 x 3.0 cm. No int racranial hemorrhage is identified. There is a right frontal approach ventriculostomy catheter tip at the anterior left lateral ventricle . No acute vascular territory infarction is identified. Valente-white distinction is preserved. There is compression of the right lateral ventricle. The basal cisterns are well maintained. The visualized portions of the paranasal sinuses and mastoid air cells are well-pneumatized. No acute fractures. IMPRESSION: 1. ORDER BUILDER shunt catheter tubing is described above. Compression of the right lateral ventricle. Correlat e with prior imaging if available. 2. Masslike area in the right frontoparietal region measuring approximately 5.3 x 3.0 cm which is in completely characterized on CT. Correlate with patient's history. If necessary this would be better e valuated with MRI of the brain with contrast. Electronically signed by: Hector Jeffers MD (01/22/2021 9:09 PM) [facility]
--- NOTE | 2021-01-22 21:21 | RAD ---
Exam: CT of chest with contrast INDICATION: Dyspnea, recent surgery TECHNIQUE: Sequential axial images through the chest obtained following the administration of 99 mL o f Isovue-370 IV contrast. Sagittal and coronal reformatted images were reconstructed from the axial d finn and reviewed. 3-D reformatted images were reconstructed from the axial data and reviewed. Exposure: One or more of the following in the visualized dose reduction techniques were utilized for this examination: 1. Automated exposure control 2. Adjustment of the MA and/or KV according to patient size 3. Use of iterative of reconstructive technique Comparisons: Chest x-ray 08/16/2020 FINDINGS: Partial thyroidectomy changes. Soft tissue drain noted at the thyroidectomy site. No enlarged mediast inal lymph nodes are identified. Heart size is at the upper limits of normal. No pericardial effusion. Thoracic aorta has a normal cou rse and caliber. Pulmonary artery is not enlarged. No pulmonary embolus identified within the main, l obar or segmental pulmonary arteries. Airways are patent. There is a moderate to large right-sided pneumothorax. Compressive atelectasis of the right lung is noted. No pleural effusion or thickening. Postoperative changes at the stomach. Limited rich adenoma at the right adrenal gland. No suspicious osseous lesions or acute fractures. IMPRESSION: 1. Moderate to large right pneumothorax. 2. No pulmonary embolus identified within the main, lobar or segmental pulmonary arteries. 3. Partial thyroidectomy changes with a drain at the thyroidectomy bed. FOR INTERNAL CODING PURPOSES Critical result: Findings discussed with Kyra Liriano at 01/22/2021 9:14 PM. RESULT CODE: (C) Electronically signed by: Hector Jeffers MD (01/22/2021 9:18 PM) [facility]
[2021-01-22] MEDS ORDERED: LIDOCAINE 1% Multi-Dose 20 ML VIAL. IJ ONE (21:30)
[2021-01-22 22:08] LABS: BGAS PH 7.22 (7.35-7.45)
--- NOTE | 2021-01-22 22:36 | RAD ---
Exam: Chest one view INDICATION: Post chest tube TECHNIQUE: Frontal view of the Comparisons: CT same day FINDINGS: There is a right chest tube. Heart is mildly enlarged. Pulmonary vessels are within normal limits. The lung and pleural spaces are clear. No pneumothorax. IMPRESSION: Interval placement of right-sided chest tube. No pneumothorax. Electronically signed by: Hector Jeffers MD (01/22/2021 10:34 PM) LADONNA
[2021-01-22] MEDS ORDERED: ACETAMINOPHEN 500 MG TABLET PO ONE (23:15)
[2021-01-22] MEDS ORDERED: cefTRIAXone SODIUM 1 GM VIAL ONE (23:38)
[2021-01-22] MEDS ORDERED: IV NORMAL SALINE 50ML 50 ML ONE (23:38)
--- NOTE | 2021-01-23 04:22 | EKG ---
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
== END 2021-01-22 23:58 | disposition short-term general hospital (02) ==
LOC: ER 18:20
DX: J95.811 Postprocedural pneumothorax (principal); J44.9 Chronic obstructive pulmonary disease, unspecified; E11.9 Type 2 diabetes mellitus without complications; I10 Essential (primary) hypertension; G89.29 Other chronic pain; Z86.73 Personal history of transient ischemic attack (TIA), and cerebral infarction without residual deficits; Z87.891 Personal history of nicotine dependence; Z20.822 Contact with and (suspected) exposure to COVID-19
CPT/HCPCS: 32551; 36415; 70450; 71045; 71275; 80053; 82803; 83605; 83880; 84484; 85025; 87040; 87426; 87804; 93005; 94640; 96374; 99285; C9803; J2930; J3010; Q9967; U0003; 96375; 96376